=== PATIENT | male | born 1945 | race Caucasian/White ===

== ENCOUNTER 2024-03-28 15:19 | Emergency (ER) | payer MEDICARE, SELFPAY ==
[2024-03-28 15:26] VITALS: BP 156/100; PULSE 104; TEMP 36.9; O2SAT 96; BMI 26.7
--- NOTE | 2024-03-28 16:00 | XR_ITS ---
The [address] [address] Patient Name: SUMI PONCE MRN: [id number] date: 1945 Sex: M Assigned Patient Location: ER Current Patient Location: ER Accession/Order Number: [id number] Exam Date: 03/28/2024 16:10 Report Date: 03/28/2024 16:22 At the request of: LINDA ZAMARRIPA Procedure: XR chest 2V EXAM: Chest x-ray HISTORY: . cough . COMPARISON: None. TECHNIQUE: Frontal and lateral chest FINDINGS: Heart and vascularity are unremarkable. Lungs are free of focal infiltrates. Spondylosis of the spine is noted. XR/XR chest 2V IMPRESSION: No acute heart or lung disease identified. Electronically authenticated by: LAVERN TURNER Date: 03/28/2024 16:22
[2024-03-28 16:56] VITALS: O2SAT 98
--- NOTE | 2024-03-28 17:07 | ED_ITS ---
HPI HPI - General Adult General Chief complaint: Upper Respiratory Infection Stated complaint: URTI Time Seen by Provider: 03/28/24 15:35 Source: patient Mode of arrival: walk-in Limitations: no limitations History of Present Illness HPI narrative: 79-year-old male to the emergency department with chief complaint of nasal congestion, cough. Symptoms been ongoing for the last 3 days. He reports the cough is worse at night. He is having a hard time sleeping due to the cough. He denies any fever, sweats, chills. The cough is nonproductive he is otherwise at his baseline health. No chest pain or shortness of breath. Related Data Previous Rx's ?Medication ?Instructions ?Recorded albuterol sulfate 90 mcg/actuation 2 inh inhalation Q4H PRN shortness 03/28/24 aerosol inhaler of breath or wheezing #6.7 grams vsileyrcgzlrzpw-[id number]-RR 5 ml PO Q4H PRN cold symptoms #118 03/28/24 2 mg-30 mg-10 mg/5 mL oral syrup mL (Bromfed DM) prednisone 20 mg tablet 40 mg (2 x 20 mg) PO DAILY 5 days 03/28/24 #10 tabs Allergies Allergy/AdvReac Type Severity Reaction Status Date / Time No Known Drug Allergies Allergy Verified 03/28/24 15:25 Opioid HPI Opioid Management Most Recent Opioid Data: No Data to Display Review of Systems ROS Status of ROS 10 or more systems reviewed and unremark able except as noted in history and below PFSH PFSH Social History Little interest or pleasure in doing things: not at all Feeling down, depressed, or hopeless: not at all Exam Narrative Exam Narrative: VITALS: I have reviewed the triage vital signs. GENERAL: Well developed, well appearing adult in no acute distress. NEURO: Alert and oriented. Moves all extremities. Face is symmetric and expressive. EYES: PERRL. No scleral icterus or conjunctival injection. No discharge. HENT: Normocephalic, atraumatic. Hearing is grossly intact. Nasal congestion. Mucous membranes moist. NECK: No JVD. Patient moves neck without restriction. CARDIO: Rhythm regular. Normal rate. No murmur, rub, or gallop. Pulses equal bilaterally in the upper and lower extremity. No lower extremity edema. PULM: Rhonchi that clear with coughing. No conversational dyspnea. No splinting, stridor, or accessory muscle use. Dry cough on exam GI/: Abdomen is soft and non-tender. Normoactive bowel sounds. EXTREMITIES: Symmetric muscle bulk. No joint swelling. No clubbing, cyanosis, or deformity. SKIN: Warm and dry. Normal turgor. No rash or lesions appreciated. PSYCH: Mood, affect, and interaction is appropriate to the setting. Constitutional Vital Signs, click to edit/add: Last Vital Signs Temp 98.4 F 03/28/24 15:26 Pulse 104 H 03/28/24 15:26 Resp 18 03/28/24 16:56 BP 156/100 H 03/28/24 15:26 Pulse Ox 98 03/28/24 16:56 O2 Del Method Room Air 03/28/24 16:56 Course Vital Signs Vital signs: Vital Signs Temperature 98.4 F 03/28/24 15:26 Pulse Rate 104 H 03/28/24 15:26 Respiratory Rate 20 03/28/24 15:26 Blood Pressure 156/100 H 03/28/24 15:26 Pulse Oximetry 96 03/28/24 15:26 Temperature 98.4 F 03/28/24 15:26 Pulse Rate 104 H 03/28/24 15:26 Respiratory Rate 18 03/28/24 16:56 Blood Pressure 156/100 H 03/28/24 15:26 Pulse Oximetry 98 03/28/24 16:56 Oxygen Delivery Method Room Air 03/28/24 16:56 Medical Decision Making MDM Narrative Medical decision making narrative: Well-appearing 79-year-old male to the emergency department chief complaint of URI symptoms. Vital stable, the patient is afebrile. He is in no respiratory distress. He has rhonchi that clear with coughing. Nasal congestion. He is concerned about the cough keeping him up at night. Chest x-ray is ordered. Chest x-ray without focal infiltrate. Likely bronchitis. Bromfed, prednisone, albuterol prescribed. Return precautions were discussed. Follow-up with PCP. All questions were answered. The patient was discharged home Medical Records Medical records reviewed: Yes I reviewed the patient's medical records Lab Data Lab results reviewed: Yes I reviewed the patient's lab results Imaging Data Chest x-ray: Radiologist's impression: ITS Impressions Chest X-Ray 03/28/24 16:00 IMPRESSION: No acute heart or lung disease identified. Electronically authenticated by: LAVERN TURNER Date: 03/28/2024 16:22 Discharge Plan Discharge Chief Complaint: Upper Respiratory Infection Clinical Impression: Bronchitis Patient Disposition: Home, Self-Care Time of Disposition Decision: 16:47 Condition: Good Mode of Transportation: Private Vehicle Prescriptions / Home Meds: New prednisone 20 mg tablet 40 mg PO DAILY 5 Days Qty: 10 0RF uuwiwxvvymrzhbx-[id number]-LG [Bromfed DM] 2-30-10 mg/5 mL syrup 5 ml PO Q4H PRN (Reason: cold symptoms) Qty: 118 0RF albuterol sulfate 90 mcg/actuation HFA aerosol inhaler 2 inh inhalation Q4H PRN (Reason: shortness of breath or wheezing) Qty: 6.7 0RF Print Language: Ecuadorean Instructions: Acute Bronchitis (ED) Additional Instructions: Call the office of your primary care doctor to arrange for follow-up within the above-stated timeframe. Your ED visit was focused on your acute issue and does not replace primary care. You should review your labs, imaging, and diagnoses from this ED visit with your primary care physician. There may be non-emergent/ incidental findings that need further evaluation. You should review your vital signs including blood pressure with your PCP. If you were prescribed medications you should discuss possible side-effects and drug interactions with your pharmacist. Call 911 or go to the nearest Emergency Department if you develop any new or worsening symptoms. Seek immediate medical attention if you develop: worsening shortness of breath, difficulty breathing, chest pain, nausea, vomiting, weakness, numbness, tingling, excessive sweating, loss of motion in your arms or legs, or any new or worsening symptoms. Referrals: Physician,Non-Staff, MD [Primary Care Provider] - 1 week Discharge Date/Time: 03/28/24 16:57
== END 2024-03-28 16:57 | disposition home or self-care (01) ==
PROVIDERS: Emergency Provider Student in an Organized Health Care Education/Training Program
DX: J40 Bronchitis, not specified as acute or chronic (principal)
CPT/HCPCS: 71046; 99283

== ENCOUNTER 2024-06-09 20:20 | Emergency (ER) | payer OTHER, SELFPAY ==
[2024-06-09] VITALS (24 sets, daily range): BP systolic 121–175; BP diastolic 58–106; PULSE 82–102; TEMP 36.8–37.1; O2SAT 94–99; BMI 28.1
--- OUTSIDE RECORDS SUMMARY | 2024-06-09 20:31 | XMS_ITS | CCD ---
Author Organization [facility] Care Team Providers Care Net Ui Developer Name Role Phone DR BRYN TAPIA Primary Care Unavailable DR NICK MADRID Consulting Unavailable DIAZ WRAY Attending Unavailable DIAZ WRAY Admitting Unavailable DIAZ WRAY Consulting Unavailable Medications Current Medications Medication Drug Class(es) Dates Sig (Normalized) Sig (Original) hydrOXYzine hydrochloride 25 mg oral tablet (1 source) Antihistamine Start: 12-16-2023 Hydroxyzine Hcl Active 25 MG PO every 6 to 8 hours 14 December 16, 2023 12:00am [place] (No Known Home Meds) (1 source) Start: 12-16-2023 [place] (No Known Home Meds) Active December 16, 2023 12:00am Problems Active Problems Problem Classification Problem Date Documented Da te Episodic/Chronic Other lower respiratory disease (1 source) Other nonspecific abnormal finding of lung field; Translations: [OTH NONSPECIFIC ABN FIND LNG FIELD] Onset: 05-29-2021 Episodic Other lower respiratory disease (1 source) Shortness of breath; Translations: [SHORTNESS OF BREATH] Onset: 05-29-2021 Episodic Pneumonia (except that caused by tuberculosis or sexually transmitted disease) (1 source) Pneumonia, unspecified organism; Translations: [PNEUMONIA UNSPECIFIED ORGANISM] Onset: 05-29-2021 Episodic Unclassified (2 sources) COUGH, UNSPECIFIED; Translations: [COUGH, UNSPECIFIED] Onset: 05-29-2021 Unclassified (1 source) CONTACT W/AND (SUSP) EXPOS COVID-19; Translations: [CONTACT W/AND (SUSP) EXPOS COVID-19] Onset: 05-29-2021 Past or Other Problems Problem Classification Problem Date Documented Da te Episodic/Chronic Unclassified (1 source) COUGH, UNSPECIFIED; Translations: [COUGH, UNSPECIFIED] Onset: 05-27-2021 Results Test Name Value Interpretation Reference Range Facil ity BNPon 05-27-2021 Natriuretic peptide B (Bld) [Mass/Vol] 39.0 pg/mL Normal <=1,800.[address] [facility] Comment on above: Performed By: #### C MP, HSTROPN, BNP #### [facility] [address] [place] [address] Dr. Chio Rojas CBC W MANUAL DIFFon 05-27-20 21 ATYPICAL LYMPH # Normal [facility] Comment on above: Performed By: #### C BCMAN #### [facility] [address] [place] [address] Dr. Chio Rojas ATYPICAL LYMPH % Normal [facility] Comment on above: Performed By: #### C BCMAN #### [facility] [address] [place] [address] Dr. Chio Rojas BAND # 0.1 103/ul Normal 0.0-0.3 [facility] Comment on above: Performed By: #### C DEMIMAN #### [facility] [address] [place] [address] Dr. Chio Rojas BAND % 1 % Normal 0-[address] [facility] Comment on above: Performed By: #### C BCYAHAIRA #### [facility] [address] [place] [address] Dr. Chio Rojas BASOM # 0.09 103/ul Normal 0.00-0.10 [facility] Comment on above: Performed By: #### C GISSELLE #### [facility] [address] [place] [address] Dr. Chio Rojas BASOM % 1.0 % Normal 0.2-2.0 [facility] Comment on above: Performed By: #### C BCMAN #### [facility] [address] [place] [address] Dr. Chio Rojas BLAST # Normal [facility] Comment on above: Performed By: #### C BCMAN #### [facility] [address] [place] [address] Dr. Chio Rojas BLAST % Normal [facility] Comment on above: Performed By: #### C BCMAN #### [facility] [address] [address] [address] Chio Rojas CORRECTED WBC Normal 4.0-11.0 [facility] Comment on above: Performed By: #### C GISSELLE #### [facility] [address] [place] [address] Dr. Chio Rojas EOS # 0.68 103/ul Normal 0.00-0.70 [facility] Comment on above: Performed By: #### C GISSELLE #### [facility] [address] [address] [address] Chio Rojas EOS% 8.0 % Critically high 0.9-7.0 [facility] Comment on above: Performed By: #### C GISSELLE #### [facility] [address] [place] [address] Dr. Chio Rojas HCT 48.5 % Normal 42.0-54.0 [facility] Comment on above: Performed By: #### C GISSELLE #### [facility] [address] [place] [address] Dr. Chio Rojas HGB 16.2 g/dl Normal 14.0-18.0 [facility] Comment on above: Performed By: #### C GISSELLE #### [facility] [address] [place] [address] Dr. Chio Rojas LYMPHM # 2.04 103/ul Normal 1.20-3.[address] [facility] Comment on above: Performed By: #### C GISSELLE #### [facility] [address] [place] [address] Dr. Chio Rojas LYMPHM% 24.0 % Normal 20.5-60.[address] [facility] Comment on above: Performed By: #### C GISSELLE #### [facility] [address] [place] [address] Dr. Chio Rojas MCH 29.9 pg Normal 25.9-34.0 [facility] Comment on above: Performed By: #### C GISSELLE #### [facility] [address] [place] [address] Dr. Chio Rojas MCHC 33.4 g/dl Normal 29.9-35.2 [facility] Comment on above: Performed By: #### C BCYAHAIRA #### [facility] [address] [place] [address] Dr. Chio Rojas MCV 89.6 fL Normal 80.0-94.0 [facility] Comment on above: Performed By: #### C GISSELLE #### [facility] [address] [place] [address] Dr. Chio Rojas METAMYELOCYTE # Normal [facility] Comment on above: Performed By: #### C BCYAHAIRA #### [facility] [address] [place] [address] Dr. Chio Rojas METAMYELOCYTE % Normal [facility] Comment on above: Performed By: #### C GISSELLE #### [facility] [address] [place] [address] Dr. Chio Rojas MONOM# 0.94 103/ul Critically high 0.30-0.80 [facility] Comment on above: Performed By: #### C GISSELLE #### [facility] [address] [place] [address] Dr. Chio Rojas MONOM% 11.0 % Normal 1.7-12.0 [facility] Comment on above: Performed By: #### C GISSELLE #### [facility] [address] [place] [address] Dr. Chio Rojas MPV 11.3 fL Normal 9.5-13.5 [facility] Comment on above: Performed By: #### C GISSELLE #### [facility] [address] [place] [address] Dr. Chio Rojas MYELOCYTE # Normal [facility] Comment on above: Performed By: #### C GISSELLE #### [facility] [address] [place] [address] Dr. Chio Rojas MYELOCYTE % Normal [facility] Comment on above: Performed By: #### C GISSELLE #### [facility] [address] [place] [address] Dr. Chio Rojas NRBC Normal [facility] Comment on above: Performed By: #### C GISSELLE #### [facility] [address] [address] [address] Chio Rojas PLT 142 103/ul Critically low 150-450 [facility] Comment on above: Performed By: #### C GISSELLE #### [facility] [address] [address] [address] Chio Rojas RBC 5.41 106/ul Normal 4.70-6.[address] [facility] Comment on above: Performed By: #### C GISSELLE #### [facility] [address] [address] [address] Chio Rojas RDW 14.0 % Normal 11.0-15.0 [facility] Comment on above: Performed By: #### C GISSELLE #### [facility] [address] [place] [address] Dr. Chio Rojas SEG # 4.67 103/ul Normal 1.40-6.50 [facility] Comment on above: Performed By: #### C GISSELLE #### [facility] [address] [place] [address] Dr. Chio Rojas SEG % 55.0 % Normal 43.0-75.0 [facility] Comment on above: Performed By: #### C GISSELLE #### [facility] [address] [place] [address] Dr. Chio Rojas WBC 8.5 103/ul Normal 4.0-11.0 [facility] Comment on above: Performed By: #### Linda PITTS #### [facility] [address] [place] [address] Dr. Chio Rojas CTA CHEST WO W CONon 05-27- 021 CTA CHEST WO W CON EXAMINATION: CTA CHEST WO W CON HISTORY: SHORTNESS OF BREATH , cough COMPARISON: No relevant comparison available. TECHNIQUE: Multi-planar CT images were created with IV contrast. Axial, Coronal, and Sagittal images. Dose reduction techniques were achieved by using automated exposure control and/or adjustment of mA and/or kV according to patient size and/or use of iterative reconstruction technique. 3-D reconstruction was performed on a separate workstation. FINDINGS: VASCULATURE: No pulmonary embolism or abnormal opacity. LUNGS: Small collection of tiny faint nodular/patchy opacities within posterior lateral right upper lobe at the level of the hilum and within the superior segment of the right lower lobe at the same level. PLEURA: No mass, effusion, or pneumothorax. DULCE: Mild lymphadenopathy. MEDIASTINUM: Calcified subcarinal lymph nodes. CARDIAC: No enlargement, pericardial effusion, or pericardial thickening. AORTA: No aneurysm or dissection. CHEST WALL: No mass or axillary adenopathy. BONES: No bone lesion or fracture. LIMITED ABDOMEN: No suspicious findings. Limited images of the upper abdomen. OTHER: Negative. IMPRESSION: 1. No pulmonary embolism. 2. Small area of mild infectious infiltrates versus developing nodules. Follow-up imaging in 2 months should be considered to document clearing versus persistence or increase. Electronically authenticated by: NICK MADRID Date: 2021-05-27 12:[address] [facility] Covid-19 PCR (CVDTBH)on 05-15 SARS-CoV-2 (COVID-19) RNA CHAYO+probe Ql (Unsp spec) Not detected Normal NOT DETECTED [facility] Comment on above: Result Comment: When diagnostic testing is negative, the possibility of a false negative should be considered in the context of a patient's recent exposures and the presence of clinical signs and symptoms consistent with SARS-CoV-2. This test is not yet approved or cleared by the [place] Food and Drug Administration (FDA). This test was developed by [employer], [place], [place]. The performance characteristics of this test were validated by [facility]. The results are not intended to be used as the sole means for clinical diagnosis or patient management decisions. [facility] is authorized under Clinical Laboratory Improvement Amendments (CLIA) to perform high- complexity testing. This test is not yet approved or cleared by the [place] FDA. When there are no FDA-approved or cleared tests available, and other criteria are met, FDA can make tests available under an emergency access mechanism called an Emergency Use Authorization (EUA). The EUA for this test is supported by the [place] of Health and Human Service's declaration that circumstances exist to justify the emergency use of in vitro diagnostics for the detection and/or diagnosis of the virus that causes COVID-19. This EUA will remain in effect for the duration of the COVID-19 declaration justifying emergency of IVDs, unless it is terminated or revoked by the FDA (after which the test may no longer be used). Performed By: #### C VDTBH #### [facility] [address] [place] [address] Dr. Chio Rojas D-DIMERon 05-27-2021 D-DIMER 0.65 mg/L FEU Critically high 0.19-0.[address] [facility] Comment on above: Performed By: #### P TT, PT, DDIM #### [facility] [address] [place] [address] Dr. Chio Rojas D-DIMER COMMENTS SEE BELOW Normal [facility] Comment on above: Result Comment: Incr eases in D-Dimer concentration observed with thromboembolic events can be variable due to localization, size, and age of the thrombus. Therefore, a thromboembolic event cannot be diagnosed with certainty on the basis of the reference range. D-Dimers may also be elevated for a variety of disorders including: advanced age, , coronary disease, cancer, liver disease, infection, inflammation, hematoma, DIC, trauma, post-surgery, diabetes, thrombolytic or anticoagulant therapy, stress, and generalized hospitalization. critical value repeated and verified Performed By: #### P TT, PT, DDIM #### [facility] [address] [place] [address] Dr. Chio Rojas PROF 14(COMP METB)on 021 Albumin [Mass/Vol] 3.8 g/dL Normal 3.5-5.[address] [facility] Comment on above: Performed By: #### C MP, HSTROPN, BNP #### [facility] [address] [place] [address] Dr. Chio Rojas Albumin/Globulin [Mass ratio] 1.0 {ratio} Normal [facility] Comment on above: Performed By: #### C MP, HSTROPN, BNP #### [facility] [address] [place] [address] Dr. Chio Rojas ALP [Catalytic activity/Vol] 87 U/L Normal 38-[address] [facility] Comment on above: Performed By: #### C MP, HSTROPN, BNP #### [facility] [address] [address] [address] Chio Rojas ALT [Catalytic activity/Vol] 74 U/L Critically high 21-72 [facility] Comment on above: Performed By: #### C MP, HSTROPN, BNP #### [facility] [address] [address] [address] Chio Rojas Anion gap [Moles/Vol] 27.1 mmol/L Normal [facility] Comment on above: Performed By: #### C MP, HSTROPN, BNP #### [facility] [address] [address] [address] Chio Rojas AST [Catalytic activity/Vol] 41 U/L Normal 17-[address] [facility] Comment on above: Performed By: #### C MP, HSTROPN, BNP #### [facility] [address] [place] [address] Dr. Chio Rojas Bilirubin [Mass/Vol] 1.3 mg/dL Normal 0.2-1.3 [facility] Comment on above: Performed By: #### C MP, HSTROPN, BNP #### [facility] [address] [address] [address] Chio Rojas Calcium [Mass/Vol] 9.2 mg/dL Normal 8.4-10.2 [facility] Comment on above: Performed By: #### C MP, HSTROPN, BNP #### [facility] [address] [address] [address] Chio Rojas Chloride [Moles/Vol] 102 mmol/L Normal 98-[address] [facility] Comment on above: Performed By: #### C MP, HSTROPN, BNP #### [facility] [address] [address] [address] Chio Rojas CO2 [Moles/Vol] 25.5 mmol/L Normal 22.0-30.0 [facility] Comment on above: Performed By: #### C MP, HSTROPN, BNP #### [facility] [address] [address] [address] Chio Rojas Creatinine [Mass/Vol] 1.24 mg/dL Normal 0.66-1.25 [facility] Comment on above: Performed By: #### C MP, HSTROPN, BNP #### [facility] [address] [place] [address] Dr. Chio Rojas EGFR-AF CONGOLESE >60 Normal >=60 [facility] Comment on above: Performed By: #### C MP, HSTROPN, BNP #### [facility] [address] [place] [address] Dr. Chio Rojas EGFR-NON AF CONGOLESE 57 mL/min/1.73m2 Critically low >=60 [facility] Comment on above: Performed By: #### C MP, HSTROPN, BNP #### [facility] [address] [place] [address] Dr. Chio Rojas Globulin (S) [Mass/Vol] 3.8 g/dL Normal [facility] Comment on above: Performed By: #### C MP, HSTROPN, BNP #### [facility] [address] [place] [address] Dr. Chio Rojas Glucose [Mass/Vol] 105 mg/dL Normal 74-106 [facility] Comment on above: Performed By: #### C MP, HSTROPN, BNP #### [facility] [address] [place] [address] Dr. Chio Rojas Potassium [Moles/Vol] 4.2 mmol/L Normal 3.4-5.0 [facility] Comment on above: Performed By: #### C MP, HSTROPN, BNP #### [facility] [address] [place] [address] Dr. Chio Rojas Protein [Mass/Vol] 7.6 g/dL Normal 6.1-8.2 [facility] Comment on above: Performed By: #### C MP, HSTROPN, BNP #### [facility] [address] [place] [address] Dr. Chio Rojas Sodium [Moles/Vol] 141 mmol/L Normal 137-145 [facility] Comment on above: Performed By: #### C MP, HSTROPN, BNP #### [facility] [address] [place] [address] Dr. Chio Rojas Urea nitrogen [Mass/Vol] 29.0 mg/dL Critically high 9.0-20.0 [facility] Comment on above: Performed By: #### C MP, HSTROPN, BNP #### [facility] [address] [place] [address] Dr. Chio Rojas Urea nitrogen/Creatinine [Mass ratio] 23.4 mg/mg Normal [facility] Comment on above: Performed By: #### C MP, HSTROPN, BNP #### [facility] [address] [place] [address] Dr. Chio Rojas PROTIMEon 05-27-2021 INR Coag (PPP) [Relative time] 1.01 {INR} Normal [facility] Comment on above: Performed By: #### P TT, PT, DDIM #### [facility] [address] [place] [address] Dr. Chio Rojas INR GUIDELINES SEE BELOW Normal [facility] Comment on above: Result Comment: BIN RED INR: 2.0 - 3.0 CONDITIONS NOT LISTED BELOW 2.5 - 3.5 FOR PROSTHETIC HEART VALVE REPLACEMENT 2.5 - 3.5 RECURRENT THROMBOSIS Performed By: #### P TT, PT, DDIM #### [facility] [address] [place] [address] Dr. Chio Rojas PT Coag (PPP) [Time] 10.9 s Normal 9.0-11.[address] [facility] Comment on above: Performed By: #### P TT, PT, DDIM #### [facility] [address] [place] [address] Dr. Chio Rojas PTTon 05-27-2021 aPTT Coag (Bld) [Time] 28.2 s Normal 22.3-36.2 [facility] Comment on above: Performed By: #### P TT, PT, DDIM #### [facility] [address] [place] [address] Dr. Chio Rojas TROPONIN, HIGH SENSITIVITYon 05-27-2021 HSTROP 11.9 pg/mL Normal 4.0-42.[address] [facility] Comment on above: Result Comment: CUT- OFF POINTS HAVE BEEN ESTABLISHED BASED ON THE FOURTH UNIVERSAL DEFINITIONS OF MYOCARDIAL INFARCTION. THE UPPER REFERENCE LIMIT (URL) OF TROPONIN, DEFINED THE 99TH PERCENTILE OF cTnI DISTRIBUTION IN A REFERENCE POPULATION, HAS BEEN CONFIRMED THE DECISION THRESHOLD FOR [place] DIAGNOSIS. Performed By: #### C MP, HSTROPN, BNP #### [facility] [address] [address] [address] Chio Rojas Vital Signs Date Time Vital Sign Value Performing Clinician Faci lity 12-16-2023 11:040 Body height 175.26 cm [facility] 12-16-2023 11:0400 Body mass index (BMI) [Ratio] 27.3 kg/m2 [facility] 12-16-2023 11:07-0400 Body temperature 98.2 [degF] [facility] 12-16-2023 11:[id number] Body weight 84.08 kg [facility] 12-16-2023 11:07-0400 Diastolic blood pressure 70 mm[Hg] [facility] 12-16-2023 11:07-0400 Heart rate 82 /min [facility] 12-16-2023 11:07-0400 Respiratory rate 18 /min [facility] 12-16-2023 11:07-0400 SaO2% (BldA) [Mass fraction] 98 % [facility] 12-16-2023 11:07-0400 Systolic blood pressure 120 mm[Hg] [facility] Encounters Encounter Date Encounter Type Care Provider Facility Start: 12-16-2023 End: 12-16-2023 ambulatory [facility] Work Phone: Start: 12-16-2023 End: 12-16-2023 Patient encounter procedure [facility] Work Phone: Start: 05-27-2021 End: 05-27-[address] DOCTOR TAPIA Facility: Payers Date Payer Category Payer Unknown [id number] 1945 Unknown [id number] Medicare Medicare [id number] Social History Date Type Detail Facility [facility] Work Phone: Start: 1945 Sex Assigned At Male F [facility] Evaluation note Note Date & Type Note Facility Evaluation note No assessment information availa ble [facility] Work Phone: Summary Purpose Family History Relationship Condition Age at Onset Recorded Date/T barry father Unknown mother Malignant neoplasm Unknown Unknown Advance Directives Advance Directive Response Recorded Date/ Time Advance Directives No December 15 10:55am Chief Complaint and Reason for Visit Chief Complaint Rash arms, face, wor sandrita in yard Additional Source Comments (unrecognized sect ion and content) No Status Records Found INFORMATION SOURCE (unrecogn ized section and content) DATE CREATED AUTHOR 05/29/2021 [facility] (unrecognized sec tion and content) Team Status: Active Member Role Status Dates NON STAFF Primary Care Provider Active Team Status: Inactive Member Role Status Dates NON STAFF Primary Care Provider Active Start: December 16, 2023 End: December 16, 2023 Stacie Pete APRN Attending Provider Active S tart: December 16, 2023 End: December 16, 2023 Goals (unrecognized section and content) Goals may be documented in a n alternate section FOR RECORDS PERTAINING TO PATIENTS WHO ARE OR HAVE BEEN ENROLLED IN A CHEMICAL DEPENDENCY/SUBSTANCEABUSE PROGRAM, SOME INFORMATION MAY BE OMITTED. This clinical summary was aggregated from multiple sources. Caution should be exercised in using it in the provision of clinical care. This summary normalizes information from multiple sources, and as a consequence, information in this document may materially change the coding, format and clinical context of patient data. In addition, data may be omitted in some cases. CLINICAL DECISIONS SHOULD BE BASED ON THE PRIMARY CLINICAL RECORDS. [facility] [employer] [facility]. provides no warranty or guarantee of the accuracy or completeness of information in this document.
--- NOTE | 2024-06-09 20:36 | PC.NURSE ---
this patient drove himself into the er dept with complaints of diarrhea and nausea, onset 5 days ago. this patient voices no other complaints and he shows no signs of distress
--- NOTE | 2024-06-09 20:38 | CT_ITS ---
The [address] [address] Patient Name: SUMI MCKENZIE MRN: [id number] date: 1945 Sex: M Assigned Patient Location: ED.MAIN Current Patient Location: Accession/Order Number: [id number] Exam Date: 06/09/2024 21:40 Report Date: 06/09/2024 22:55 At the request of: OSMIN MARTIN Procedure: CT abdomen pelvis w con CT OF THE ABDOMEN AND PELVIS WITH CONTRAST: 06/09/2024 9:40 PM EST CLINICAL HISTORY: Diarrhea. Symptoms x5 days. Nausea and vomiting. COMPARISONS: None. TECHNIQUE: Thin section axial CT images were obtained from the lung bases to the pubis symphysis. This CT exam was performed using one or more of the following dose reduction techniques: Automated exposure control, adjustment of the mA and/or kV according to patient size, or use of iterative reconstruction technique. Thin section coronal and sagittal images were reconstructed from the axial data set. All images were reviewed and interpreted. CONTRAST: Omnipaque 300, 100 mL IV. FINDINGS: LUNG BASES: Subcentimeter calcified granuloma medial base of right middle lobe. Lung bases otherwise clear. No cardiac chamber enlargement. GE JUNCTION AND STOMACH: Negative. No hiatal hernia. LIVER: Mild diffuse hepatic steatosis. Tiny low-density cystic lesion left hepatic lobe are too small to characterize but statistically benign cyst measuring 7 mm. Density lower than that of fatty liver.. GALLBLADDER: There are 2 small distal layering calcified gallstones at distal fundus. These measure 7 to 8 mm each. No evidence of cholecystitis. BILIARY TREE: No ductal dilatation. PANCREAS: Normal. SPLEEN: Couple small scattered calcified splenic granulomas. Borderline size enlargement measuring 13 cm in length. No splenic mass or cyst. ADRENALS: Normal. KIDNEYS AND URETERS: Right kidney and ureter are normal. No mass or cyst or hydronephrosis. No retained right intrarenal or ureteral calculus. Simple posterior mid upper pole cyst left kidney measuring 1.6 cm. Left kidney otherwise normal. No intrarenal or ureteral calculi. No left renal mass. URINARY BLADDER: Grossly unremarkable. PELVIC STRUCTURES: Unremarkable. BOWEL: No evidence of obstruction, gross mass, or inflammatory change. There is no significant diverticulosis. There is no evidence of diverticulitis. APPENDIX: No active disease with normal appendix. LYMPH NODES: No pathologically enlarged lymph nodes identified. PERITONEUM: No intraperitoneal free air. No free intraperitoneal fluid. MESENTERY: Unremarkable. RETROPERITONEUM: The retroperitoneum is unremarkable. AORTA: Normal caliber aorta neck arteries. Scattered atherosclerotic calcific plaque throughout the wall of the aorta. BODY WALL: No body wall mass. OSSEOUS STRUCTURES: No destructive osseous lesion or displaced fracture. CT/CT abdomen pelvis w con IMPRESSION: 1. No acute abdominal or pelvic pathology. 2. Borderline splenic enlargement with scattered calcified splenic granulomas. Correlate with labs. 3. Hepatic steatosis with tiny left hepatic lobe cyst. 4. Cholelithiasis. Electronically authenticated by: REGINA DELGADO Date: 06/09/2024 22:55
--- NOTE | 2024-06-09 20:39 | ED.GENADUL1 ---
Documented by User: TAYLOR Dooley 06/09/24 21:50 HPI HPI - General Adult General Chief complaint: Nausea/Vomiting/Diarrhea Stated complaint: DIARRHEA, NAUSEA Time Seen by Provider: 06/09/24 20:31 Source: patient Mode of arrival: walk-in Limitations: no limitations History of Present Illness HPI narrative: Patient is a 79-year-old male who who presents to the emergency department for a 5-day history of diarrhea and intermittent nausea. He has no abdominal pain or nausea at this time but reports continuous loose stool. He had a colonoscopy about 10 years ago that was unremarkable. He has not had any previous history of diverticulitis or colitis. He denies any recent antibiotics or travel. No sick contacts in the home. He denies previous abdominal surgeries. He has not had any fevers, vomiting or urinary symptoms. No flank or back pain. He denies any blood in his stool or mucus. Related Data Previous Rx's ?Medication ?Instructions ?Recorded albuterol sulfate 90 mcg/actuation 2 inh inhalation Q4H PRN shortness 03/28/24 aerosol inhaler of breath or wheezing #6.7 grams zammyelorsfvyue-flnkjazmsnsybgx-QJ 5 ml PO Q4H PRN cold symptoms #118 03/28/24 2 mg-30 mg-10 mg/5 mL oral syrup mL (Bromfed DM) prednisone 20 mg tablet 40 mg (2 x 20 mg) PO DAILY 5 days 03/28/24 #10 tabs dicyclomine 20 mg tablet 20 mg PO TID PRN abdominal pain #7 06/10/24 tabs ondansetron 4 mg disintegrating 4 mg PO Q4H PRN nausea and 06/10/24 tablet vomiting 3 days #6 tabs Allergies Allergy/AdvReac Type Severity Reaction Status Date / Time No Known Drug Allergies Allergy Verified 06/09/24 20:27 Opioid HPI Opioid Management Most Recent Opioid Data: No Data to Display Review of Systems ROS Constitutional Denies: fever or chills Ears, nose, mouth, and throat Denies: throat pain or nasal congestion Cardiovascular Denies: chest pain Respiratory Denies: shortness of breath Gastrointestinal Reports: nausea and diarrhea; Denies: abdominal pain, vomiting or blood in stool Musculoskeletal Denies: back pain or neck pain Integumentary/Breast Denies: rash Neurological Denies: numbness in extremities or weakness in extremities Hematologic/Lymphatic Denies: easy bruising or easy bleeding PFSH [facility] Medical History (Updated 06/09/24 @ 21:50 by TAYLOR Dooley) GERD (gastroesophageal reflux disease) ?K21.9 - Gastro-esophageal reflux disease without esophagitis (ICD-10) Hypertension ?I10 - Essential (primary) hypertension (ICD-10) Social History Little interest or pleasure in doing things: not at all Feeling down, depressed, or hopeless: not at all Exam Narrative Exam Narrative: Gen.: Awake, alert, in no distress Head: Normocephalic, atraumatic ENT: Moist mucous membranes Respiratory: No respiratory distress, lungs clear bilaterally Cardio: Regular rate and rhythm Gastrointestinal: Abdomen is soft, nondistended and nontender to palpation Extremities: Moves extremities equally Psych: Normal mood and affect Neuro: No focal neuro deficit Skin: Warm, dry, intact Constitutional Vital Signs, click to edit/add: Last Vital Signs Temp 98.7 F 06/09/24 21:59 Pulse 82 06/09/24 23:02 Resp 18 06/09/24 23:02 BP 121/58 06/09/24 23:30 Pulse Ox 98 06/09/24 23:50 O2 Del Method Room Air 06/09/24 20:28 Course Vital Signs Vital signs: Vital Signs Temperature 98.3 F 06/09/24 20:28 Pulse Rate 102 H 06/09/24 20:28 Respiratory Rate 19 06/09/24 20:28 Blood Pressure 153/100 H 06/09/24 20:28 Pulse Oximetry 98 06/09/24 20:28 Oxygen Delivery Method Room Air 06/09/24 20:28 Temperature 98.7 F 06/09/24 21:59 Pulse Rate 82 06/09/24 23:02 Respiratory Rate 18 06/09/24 23:02 Blood Pressure 121/58 06/09/24 23:30 Pulse Oximetry 98 06/09/24 23:50 Oxygen Delivery Method Room Air 06/09/24 20:28 Medical Decision Making [facility] Narrative Medical decision making narrative: 2148: Patient has no complaint of abdominal pain or nausea at this time. Laboratory studies are obtained, he has not had a bowel movement at this time. He was sent for CT of the abdomen and pelvis which is pending. Case is turned over to attending physician for disposition. Patient is hemodynamically stable at this time SHARED APC VISIT, PHYSICIAN ATTESTATION: [id number] I performed a substantive part of the MDM during the patient?s E/M visit. I personally evaluated and examined the patient. I personally made or approved the documented management plan and acknowledge its risk of complications. Medical Records Medical records reviewed: Yes I reviewed the patient's medical records Lab Data Lab results reviewed: Yes I reviewed the patient's lab results Labs: Lab Results 06/09/24 06/09/24 Range/Units 20:50 23:00 WBC 8.8 (4.0-11.0) 10^3/uL RBC 5.11 (4.70-6.10) 10^6/uL Hgb 15.6 (14.0-18.0) g/dL Hct 45.8 (42.0-54.0) % MCV 89.6 (80.0-94.0) fL MCH 30.5 (25.9-34.0) pg MCHC 34.1 (29.9-35.2) g/dL RDW 13.5 (11.0-15.0) % Plt Count 165 (150-450) 10^3/uL MPV 10.9 (9.5-13.5) fL Neut % (Auto) 70.8 (43.0-75.0) % Lymph % (Auto) 15.6 L (20.5-60.0) % [place] % (Auto) 9.2 (1.7-12.0) % Eos % (Auto) 3.6 (0.9-7.0) % Baso % (Auto) 0.5 (0.2-2.0) % Neut # (Auto) 6.2 (1.4-6.5) 10^3/uL Lymph # (Auto) 1.4 (1.2-3.8) 10^3/uL [place] # (Auto) 0.8 (0.3-0.8) 10^3/uL Eos # (Auto) 0.3 (0.0-0.7) 10^3/uL Baso # (Auto) 0.0 (0.0-0.1) 10^3/uL Abs Immat Gran (auto) 0.03 (0.00-0.03) 10^3/uL Imm/Tot Granulo (auto) 0.3 (0.0-0.5) % Sodium 142 (136-145) mmol/L Potassium 3.8 (3.5-5.1) mmol/L Chloride 106 (98-107) mmol/L Carbon Dioxide 26.8 (21.0-32.0) mmol/L Anion Gap 13.0 BUN 28.0 H (7.0-18.0) mg/dL Creatinine 1.40 H (0.70-1.30) mg/dL Est GFR ( Amer) 59 L (>=60 mL/min/1.73m^2) Est GFR (Non-Af Amer) 49 L (>=60 mL/min/1.73m^2) BUN/Creatinine Ratio 20.0 Glucose 106 (74-106) mg/dL Lactate 1.3 (0.4-2.0) mmol/L Calcium 8.4 L (8.5-10.1) mg/dL Total Bilirubin 1.2 H (0.2-1.0) mg/dL AST 40 H (15-37) U/L ALT 73 H (16-63) U/L Alkaline Phosphatase 80 (46-116) U/L Total Protein 7.6 (6.4-8.2) g/dL Albumin 4.3 (3.4-5.0) g/dL Globulin 3.3 g/dL Albumin/Globulin Ratio 1.3 Lipase 48.0 (16.0-77.0) U/L Urine Color Yellow (YELLOW) Urine Clarity Clear (CLEAR) Urine pH 6.0 (5.0-9.0) Ur Specific [place] 1.010 (1.005-1.025) Urine Protein Negative (NEG/TRACE) mg/dL Urine Glucose (UA) Negative (NEGATIVE) mg/dL Urine Ketones Negative (NEGATIVE) mg/dL Urine Occult Blood Negative (NEGATIVE) Urine Nitrite Negative (NEGATIVE) Urine Bilirubin Negative (NEGATIVE) Urine Urobilinogen 0.2 (0.2-1.0) EU/dL Ur Leukocyte Esterase Negative (NEGATIVE) Imaging Data CT scan - abdomen: Attestation: I have reviewed the pertinent imaging results. Radiologist's impression: ITS Impressions Abdomen/Pelvis CT 06/09/24 20:38 IMPRESSION: 1. No acute abdominal or pelvic pathology. 2. Borderline splenic enlargement with scattered calcified splenic granulomas. Correlate with labs. 3. Hepatic steatosis with tiny left hepatic lobe cyst. 4. Cholelithiasis. Electronically authenticated by: REGINA DELGADO Date: 06/09/2024 22:55 Discharge Plan Discharge Chief Complaint: Nausea/Vomiting/Diarrhea Clinical Impression: Diarrhea Patient Disposition: Home, Self-Care Time of Disposition Decision: 00:02 Condition: Fair Prescriptions / Home Meds: New dicyclomine 20 mg tablet 20 mg PO TID PRN (Reason: abdominal pain) Qty: 7 0RF ondansetron 4 mg tablet,disintegrating 4 mg PO Q4H PRN (Reason: nausea and vomiting) 3 Days Qty: 6 0RF No Action prednisone 20 mg tablet 40 mg PO DAILY 5 Days Qty: 10 0RF kseuvxilvopyyjz-bynwlbkld-EK [Bromfed DM] 2-30-10 mg/5 mL syrup 5 ml PO Q4H PRN (Reason: cold symptoms) Qty: 118 0RF albuterol sulfate 90 mcg/actuation HFA aerosol inhaler 2 inh inhalation Q4H PRN (Reason: shortness of breath or wheezing) Qty: 6.7 0RF Print Language: Turkmen Instructions: Acute Diarrhea (ED), Acute Abdominal Pain (ED) Additional Instructions: We have discussed your lab work at bedside, including your kidney blood test BUN/CR your BUN was 28 (high normal 18). Your creatinine was 1.4 (high normal 1.4) [facility] your last blood test on your kidneys were done and compared the results today to those. Continue to increase fluids at home, Gatorade, Powerade, water. Use Zofran or Bentyl as needed for nausea or abdominal cramping. If diarrhea is continuing after 10 to 14 days, [facility] for additional [facility] cultures and testing if indicated. Referrals: Physician,Non-Staff, MD [Primary Care Provider] - 1 week Documented by User: Justin Camejo MD 06/10/24 00:14 HPI HPI - General Adult General Chief complaint: Nausea/Vomiting/Diarrhea Stated complaint: DIARRHEA, NAUSEA Time Seen by Provider: 06/09/24 20:31 Related Data Previous Rx's ?Medication ?Instructions ?Recorded albuterol sulfate 90 mcg/actuation 2 inh inhalation Q4H PRN shortness 03/28/24 aerosol inhaler of breath or wheezing #6.7 grams yygmhlgefkzbith-skgwadlfjcyfnjp-IZ 5 ml PO Q4H PRN cold symptoms #118 03/28/24 2 mg-30 mg-10 mg/5 mL oral syrup mL (Bromfed DM) prednisone 20 mg tablet 40 mg (2 x 20 mg) PO DAILY 5 days 03/28/24 #10 tabs dicyclomine 20 mg tablet 20 mg PO TID PRN abdominal pain #7 06/10/24 tabs ondansetron 4 mg disintegrating 4 mg PO Q4H PRN nausea and 06/10/24 tablet vomiting 3 days #6 tabs Allergies Allergy/AdvReac Type Severity Reaction Status Date / Time No Known Drug Allergies Allergy Verified 06/09/24 20:27 Opioid HPI Opioid Management Most Recent Opioid Data: No Data to Display [facility] Medical History (Updated 06/09/24 @ 21:50 by TAYLOR Dooley) GERD (gastroesophageal reflux disease) ?K21.9 - Gastro-esophageal reflux disease without esophagitis (ICD-10) Hypertension ?I10 - Essential (primary) hypertension (ICD-10) Social History Little interest or pleasure in doing things: not at all Feeling down, depressed, or hopeless: not at all Exam Constitutional Vital Signs, click to edit/add: Last Vital Signs Temp 98.7 F 06/09/24 21:59 Pulse 82 06/09/24 23:02 Resp 18 06/09/24 23:02 BP 121/58 06/09/24 23:30 Pulse Ox 98 06/09/24 23:50 O2 Del Method Room Air 06/09/24 20:28 Course Vital Signs Vital signs: Vital Signs Temperature 98.3 F 06/09/24 20:28 Pulse Rate 102 H 06/09/24 20:28 Respiratory Rate 19 06/09/24 20:28 Blood Pressure 153/100 H 06/09/24 20:28 Pulse Oximetry 98 06/09/24 20:28 Oxygen Delivery Method Room Air 06/09/24 20:28 Temperature 98.7 F 06/09/24 21:59 Pulse Rate 82 06/09/24 23:02 Respiratory Rate 18 06/09/24 23:02 Blood Pressure 121/58 06/09/24 23:30 Pulse Oximetry 98 06/09/24 23:50 Oxygen Delivery Method Room Air 06/09/24 20:28 Medical Decision Making MDM Narrative Medical decision making narrative: 2148: Patient has no complaint of abdominal pain or nausea at this time. Laboratory studies are obtained, he has not had a bowel movement at this time. He was sent for CT of the abdomen and pelvis which is pending. Case is turned over to attending physician for disposition. Patient is hemodynamically stable at this time SHARED APC VISIT, PHYSICIAN ATTESTATION: [id number] I performed a substantive part of the MDM during the patient?s E/M visit. I personally evaluated and examined the patient. I personally made or approved the documented management plan and acknowledge its risk of complications. Dr. Camejo note below. 0005 reevaluation of patient's abdomen at discharge shows soft, no guarding, rebound, rigidity. Mild diffuse discomfort, no significant tenderness. No flank pain bilateral. Reevaluation of patient bowel exam was done by Dr. Camejo. Patient is sent home with prescription for Zofran and Bentyl to use if needed. [facility] We did discuss for 5 minutes patient's BUN and creatinine results today, patient is uncertain when the last time he had any type of lab testing and he does not recall ever having anybody tell him that his kidney function tests have been elevated. Patient shows no signs of dehydration with his urine. Patient will continue pplk-bvf-mzngckm treatments and was sent home with prescription for Zofran and Bentyl. Patient CT report was given to him as well. No acute indication for admission. Patient does feel better after medication was given along with IV fluids. No questions at discharge. Lab Data Labs: Lab Results 06/09/24 06/09/24 Range/Units 20:50 23:00 WBC 8.8 (4.0-11.0) 10^3/uL RBC 5.11 (4.70-6.10) 10^6/uL Hgb 15.6 (14.0-18.0) g/dL Hct 45.8 (42.0-54.0) % MCV 89.6 (80.0-94.0) fL MCH 30.5 (25.9-34.0) pg MCHC 34.1 (29.9-35.2) g/dL RDW 13.5 (11.0-15.0) % Plt Count 165 (150-450) 10^3/uL MPV 10.9 (9.5-13.5) fL Neut % (Auto) 70.8 (43.0-75.0) % Lymph % (Auto) 15.6 L (20.5-60.0) % [place] % (Auto) 9.2 (1.7-12.0) % Eos % (Auto) 3.6 (0.9-7.0) % Baso % (Auto) 0.5 (0.2-2.0) % Neut # (Auto) 6.2 (1.4-6.5) 10^3/uL Lymph # (Auto) 1.4 (1.2-3.8) 10^3/uL [place] # (Auto) 0.8 (0.3-0.8) 10^3/uL Eos # (Auto) 0.3 (0.0-0.7) 10^3/uL Baso # (Auto) 0.0 (0.0-0.1) 10^3/uL Abs Immat Gran (auto) 0.03 (0.00-0.03) 10^3/uL Imm/Tot Granulo (auto) 0.3 (0.0-0.5) % Sodium 142 (136-145) mmol/L Potassium 3.8 (3.5-5.1) mmol/L Chloride 106 (98-107) mmol/L Carbon Dioxide 26.8 (21.0-32.0) mmol/L Anion Gap 13.0 BUN 28.0 H (7.0-18.0) mg/dL Creatinine 1.40 H (0.70-1.30) mg/dL Est GFR ( Amer) 59 L (>=60 mL/min/1.73m^2) Est GFR (Non-Af Amer) 49 L (>=60 mL/min/1.73m^2) BUN/Creatinine Ratio 20.0 Glucose 106 (74-106) mg/dL Lactate 1.3 (0.4-2.0) mmol/L Calcium 8.4 L (8.5-10.1) mg/dL Total Bilirubin 1.2 H (0.2-1.0) mg/dL AST 40 H (15-37) U/L ALT 73 H (16-63) U/L Alkaline Phosphatase 80 (46-116) U/L Total Protein 7.6 (6.4-8.2) g/dL Albumin 4.3 (3.4-5.0) g/dL Globulin 3.3 g/dL Albumin/Globulin Ratio 1.3 Lipase 48.0 (16.0-77.0) U/L Urine Color Yellow (YELLOW) Urine Clarity Clear (CLEAR) Urine pH 6.0 (5.0-9.0) Ur Specific [place] 1.010 (1.005-1.025) Urine Protein Negative (NEG/TRACE) mg/dL Urine Glucose (UA) Negative (NEGATIVE) mg/dL Urine Ketones Negative (NEGATIVE) mg/dL Urine Occult Blood Negative (NEGATIVE) Urine Nitrite Negative (NEGATIVE) Urine Bilirubin Negative (NEGATIVE) Urine Urobilinogen 0.2 (0.2-1.0) EU/dL Ur Leukocyte Esterase Negative (NEGATIVE) Imaging Data CT scan - abdomen: Radiologist's impression: ITS Impressions Abdomen/Pelvis CT 06/09/24 20:38 IMPRESSION: 1. No acute abdominal or pelvic pathology. 2. Borderline splenic enlargement with scattered calcified splenic granulomas. Correlate with labs. 3. Hepatic steatosis with tiny left hepatic lobe cyst. 4. Cholelithiasis. Electronically authenticated by: REGINA DELGADO Date: 06/09/2024 22:55 Discharge Plan Discharge Chief Complaint: Nausea/Vomiting/Diarrhea Clinical Impression: Diarrhea Patient Disposition: Home, Self-Care Time of Disposition Decision: 00:02 Condition: Fair Prescriptions / Home Meds: New dicyclomine 20 mg tablet 20 mg PO TID PRN (Reason: abdominal pain) Qty: 7 0RF ondansetron 4 mg tablet,disintegrating 4 mg PO Q4H PRN (Reason: nausea and vomiting) 3 Days Qty: 6 0RF No Action prednisone 20 mg tablet 40 mg PO DAILY 5 Days Qty: 10 0RF dmzeqhvjjlgujaj-elvjxvlwm-UM [Bromfed DM] 2-30-10 mg/5 mL syrup 5 ml PO Q4H PRN (Reason: cold symptoms) Qty: 118 0RF albuterol sulfate 90 mcg/actuation HFA aerosol inhaler 2 inh inhalation Q4H PRN (Reason: shortness of breath or wheezing) Qty: 6.7 0RF Print Language: Turkmen Instructions: Acute Diarrhea (ED), Acute Abdominal Pain (ED) Additional Instructions: We have discussed your lab work at bedside, including your kidney blood test BUN/CR your BUN was 28 (high normal 18). Your creatinine was 1.4 (high normal 1.4) [facility] when your last blood test on your kidneys were done and compared the results today to those. Continue to increase fluids at home, Gatorade, Powerade, water. Use Zofran or Bentyl as needed for nausea or abdominal cramping. If diarrhea is continuing after 10 to 14 days, follow[facility] for additional [facility] cultures and testing if indicated. Referrals: Physician,Non-Staff, MD [Primary Care Provider] - 1 week
[2024-06-09 21:03] LABS: Basophils Percent Auto 0.5 % (0.2-2.0); Eosinophils Absolute Auto 0.3 10^3/uL (0.0-0.7); Eosinophils Percent Auto 3.6 % (0.9-7.0); Hematocrit 45.8 % (42.0-54.0); Hemoglobin 15.6 g/dL (14.0-18.0); Immature Granulocytes Abs Auto 0.03 10^3/uL (0.00-0.03); Immature Granulocytes Pct Auto 0.3 % (0.0-0.5); Lymphocytes Absolute Auto 1.4 10^3/uL (1.2-3.8); Lymphocytes Percent Auto 15.6 % (20.5-60.0); Mean Corpuscular HGB Conc 34.1 g/dL (29.9-35.2); Mean Corpuscular Hemoglobin 30.5 pg (25.9-34.0); Mean Corpuscular Volume 89.6 fL (80.0-94.0); Mean Platelet Volume 10.9 fL (9.5-13.5); Monocytes Absolute Auto 0.8 10^3/uL (0.3-0.8); Monocytes Percent Auto 9.2 % (1.7-12.0); Neutrophils Absolute Auto 6.2 10^3/uL (1.4-6.5); Neutrophils Percent Auto 70.8 % (43.0-75.0); Platelet Count 165 10^3/uL (150-450); Red Blood Count 5.11 10^6/uL (4.70-6.10); Red Cell Distribution Width 13.5 % (11.0-15.0); White Blood Count 8.8 10^3/uL (4.0-11.0)
[2024-06-09 21:17] LABS: Alanine Aminotransferase 73 U/L (16-63); Albumin Globulin Ratio 1.3; Albumin Level 4.3 g/dL (3.4-5.0); Alkaline Phosphatase 80 U/L (46-116); Aspartate Amino Transferase 40 U/L (15-37); Bilirubin Total 1.2 mg/dL (0.2-1.0); Calcium 8.4 mg/dL (8.5-10.1); Carbon Dioxide 26.8 mmol/L (21.0-32.0); Chloride 106 mmol/L (98-107); Estimated GFR (African America 59 (>=60 mL/min/1.73m^2); Estimated GFR (Non-African Ame 49 (>=60 mL/min/1.73m^2); Globulin 3.3 g/dL; Glucose 106 mg/dL (74-106); Potassium 3.8 mmol/L (3.5-5.1); Sodium 142 mmol/L (136-145); Total Protein 7.6 g/dL (6.4-8.2)
[2024-06-09] MEDS: 0.9 % SODIUM CHLORIDE 1,000 ML 999 ML IV (21:19)
[2024-06-09 21:20] LABS: Lactate/Lactic Acid 1.3 mmol/L (0.4-2.0)
--- NOTE | 2024-06-09 22:01 | PC.NURSE ---
patient return back from ct, this patient voices no concerns and shows no signs of distress. this patient still unable to provide a urine sample and this patient aware waiting on all of the test results and for him to provide a urine sample
[2024-06-09 23:12] LABS: Bilirubin Urine NEGATIVE (NEGATIVE); Blood Urine NEGATIVE (NEGATIVE); Clarity Urine CLEAR (CLEAR); Color Urine YELLOW (YELLOW); Glucose Urine UA NEGATIVE (NEGATIVE); Ketones Urine NEGATIVE (NEGATIVE); Leukocyte Esterase Urine NEGATIVE (NEGATIVE); Nitrite Urine NEGATIVE (NEGATIVE); Protein Urine NEGATIVE (NEG/TRACE); Urobilinogen Urine 0.2 EU/dL (0.2-1.0)
[2024-06-09 23:13] LABS: Urine Microscopic Indicated NO
[2024-06-10 00:15] VITALS: BP 152/86; PULSE 76; TEMP 37; O2SAT 98
--- NOTE | 2024-06-10 00:21 | PC.NURSE ---
i gave this patient verbal and written discharge papers along with 2 e-scripts and this patient voices yes to understanding these. at time of discharge this patient voices no concerns and shows no signs of distress
== END 2024-06-10 00:22 | disposition home or self-care (01) ==
PROVIDERS: Physician Assistant; Emergency Provider Emergency Medicine
DX: R19.7 Diarrhea, unspecified (principal); K80.20 Calculus of gallbladder without cholecystitis without obstruction; K76.0 Fatty (change of) liver, not elsewhere classified
CPT/HCPCS: 36415; 74177; 80053; 81003; 83605; 83690; 85025; 99284; Q9967

== ENCOUNTER 2024-10-24 09:20 | Emergency (ER) | payer OTHER, SELFPAY ==
[2024-10-24] VITALS (17 sets, daily range): BP systolic 138–190; BP diastolic 70–102; PULSE 61–79; TEMP 36.6; O2SAT 95–98; BMI 28.1
--- NOTE | 2024-10-24 09:29 | ECG_ITS ---
The [facility] Test Date: 2024-10-24 Pat Name: SUMI MCKENZIE Department: Room: - Gender: Male [employer]: : 1945 Requested By: 1030 Order Number: [id number] Reading MD: KATHY PETERSEN M.D. Measurements Intervals [place] Rate: 66 P: 47 WV: 182 QRS: 11 QRSD: 78 T: 51 QT: 402 QTc: 415 Interpretive Statements 1100 Sinus rhythm 9110 normal ECG Compared to ECG 05/27/2021 10:08:05 No significant changes Electronically Signed On 10-24-2024 11:52:51 EDT by KATHY PETERSEN M.D.
--- NOTE | 2024-10-24 09:29 | XR_ITS ---
The [place] [address] Patient Name: SUMI MCKENZIE MRN: [id number] date: 1945 Sex: M Assigned Patient Location: ED.MAIN Current Patient Location: ED.MAIN Accession/Order Number: [id number] Exam Date: 10/24/2024 10:18 Report Date: 10/24/2024 10:19 At the request of: YAN KWONG MD Procedure: XR chest 1V PORTABLE AP ERECT CHEST 0922 hours CLINICAL HISTORY: Vertigo COMPARISON: 03/28/2024 There is continued slight elevation of the right hemidiaphragm. The heart is within normal limits. There is no vascular congestion. No consolidation is seen. There is no effusion or pneumothorax. The osseous structures are intact. Endplate spurring is noted spine. XR/XR chest 1V IMPRESSION: NO ACUTE FINDINGS Impression dictated by: Leslie Chandler M.D. 10/24/2024 10:19 AM Dictation Location: [place] [address] Electronically authenticated by: [id number] Y Date: 10/24/2024 10:19
--- NOTE | 2024-10-24 09:30 | CT_ITS ---
The [address] [address] Patient Name: SUMI MCKENZIE MRN: [id number] date: 1945 Sex: M Assigned Patient Location: ED.MAIN Current Patient Location: ED.MAIN Accession/Order Number: [id number] Exam Date: 10/24/2024 10:24 Report Date: 10/24/2024 10:27 At the request of: YAN KWONG MD Procedure: CT head/brain wo con CT BRAIN WITHOUT CONTRAST: CLINICAL HISTORY: Vertigo COMPARISON: None TECHNIQUE: Contiguous axial unenhanced images were obtained through the brain. This CT exam was performed using one or more following dose reduction techniques: Automated exposure control, adjustment of the mA and/or kV according to patient size, or use of iterative reconstruction technique. FINDINGS: There is mild generalized atrophy. The ventricles are normal in size and position. Mild microvascular changes are noted. There are no additional areas of abnormal attenuation. There is no hemorrhage, mass effect or extra-axial collections. There is mucosal thickening involving the right maxillary sinus and some of the ethmoid air cells. The mastoid air cells are clear. CT/CT head/brain wo con IMPRESSION: ATROPHY AND CHRONIC MICROVASCULAR CHANGES. MILD CHRONIC SINUSITIS. NO ACUTE INTRACRANIAL ABNORMALITY. Impression dictated by: Leslie Chandler M.D. 10/24/2024 10:27 AM Dictation Location: [place] [address] Electronically authenticated by: [id number] Y Date: 10/24/2024 10:27
--- NOTE | 2024-10-24 09:30 | ED.GENADUL1 ---
HPI HPI - General Adult General Chief complaint: Dizziness Stated complaint: DIZZINESS Time Seen by Provider: 10/24/24 09:22 History of Present Illness HPI narrative: 79-year-old male presents to the emergency department for dizziness. He had fallen and hit his head on the left side about 4 days ago. Since then he has been having these intermittent episodes where he feels like the room is spinning like a top. He does not take blood thinners. He sustained some abrasions to his left elbow but no other injuries and has no pain in the left elbow. He does not complain to me of a headache. No vision changes. Related Data Home Medications ?Medication ?Instructions ?Recorded ?Confirmed lisinopril 10 mg tablet 10 mg PO DAILY 10/24/24 10/24/24 Previous Rx's ?Medication ?Instructions ?Recorded albuterol sulfate 90 mcg/actuation 2 inh inhalation Q4H PRN shortness 03/28/24 aerosol inhaler of breath or wheezing #6.7 grams meclizine 25 mg tablet 25 mg PO QID PRN dizziness #20 tabs 10/24/24 Allergies Allergy/AdvReac Type Severity Reaction Status Date / Time No Known Drug Allergies Allergy Verified 10/24/24 09:31 Review of Systems ROS Narrative A ten point review of systems is negative except as noted above. [facility] Medical History (Updated 10/24/24 @ 11:44 by Chuy Weiss MD) GERD (gastroesophageal reflux disease) ?K21.9 - Gastro-esophageal reflux disease without esophagitis (ICD-10) Hypertension ?I10 - Essential (primary) hypertension (ICD-10) Social History Little interest or pleasure in doing things: not at all Feeling down, depressed, or hopeless: not at all Exam Narrative Exam Narrative: Nurses note and vital signs reviewed and patient is not hypoxic. General: The patient appears well and in no apparent distress. Patient is resting comfortably on cart. Skin: Warm, dry, no pallor noted. There is no rash noted. Head: Normocephalic, on the left side of his head in the temporal area of there may be a small abrasion Eye: Normal conjunctiva, no drainage, EOMI. PERRL Ears, Nose, Mouth, and Throat: oral mucosa is moist. Nares patent. Cardiovascular: Regular Rate and Rhythm Respiratory: Patient is in no distress, no accessory muscle use, lungs are clear to auscultation, no wheezing, rales or rhonchi Back: non-tender, no CVA tenderness bilaterally to percussion. GI: Normal bowel sounds, no tenderness to palpation, no masses appreciated. No rebound, guarding, or rigidity noted. Musculoskeletal: Left elbow has healing abrasion but has full range of motion with no discomfort Neurological: A&O x4, normal speech; upper and lower extremity strength 5 out of 5 and symmetric Psychiatric: Cooperative Constitutional Vital Signs, click to edit/add: Last Vital Signs Temp 98 F 10/24/24 09:24 Pulse 72 10/24/24 11:30 Resp 15 10/24/24 11:30 BP 148/70 H 10/24/24 11:30 Pulse Ox 97 10/24/24 11:30 O2 Del Method Room Air 10/24/24 09:24 Course Vital Signs Vital signs: Vital Signs Temperature 98 F 10/24/24 09:24 Pulse Rate 74 10/24/24 09:24 Respiratory Rate 18 10/24/24 09:24 Blood Pressure 190/102 H 10/24/24 09:24 Pulse Oximetry 98 10/24/24 09:24 Oxygen Delivery Method Room Air 10/24/24 09:24 Temperature 98 F 10/24/24 09:24 Pulse Rate 72 10/24/24 11:30 Respiratory Rate 15 10/24/24 11:30 Blood Pressure 148/70 H 10/24/24 11:30 Pulse Oximetry 97 10/24/24 11:30 Oxygen Delivery Method Room Air 10/24/24 09:24 Medical Decision Making [facility] Narrative Medical decision making narrative: His workup including CT brain is negative. His friend is taking him home. He is being prescribed Antivert. Treatment diagnosis and follow-up were discussed with the patient. Differential Diagnosis Differential Diagnosis: Vertigo, intracranial hemorrhage, dehydration, acute kidney Lab Data Lab results reviewed: Yes I reviewed the patient's lab results Labs: Lab Results 10/24/24 Range/Units 09:48 WBC 6.4 (4.0-11.0) 10^3/uL RBC 5.20 (4.70-6.10) 10^6/uL Hgb 15.7 (14.0-18.0) g/dL Hct 45.4 (42.0-54.0) % MCV 87.3 (80.0-94.0) fL MCH 30.2 (25.9-34.0) pg MCHC 34.6 (29.9-35.2) g/dL RDW 14.4 (11.0-15.0) % Plt Count 147 L (150-450) 10^3/uL MPV 11.2 (9.5-13.5) fL Neut % (Auto) 55.4 (43.0-75.0) % Lymph % (Auto) 27.1 (20.5-60.0) % [place] % (Auto) 10.3 (1.7-12.0) % Eos % (Auto) 6.1 (0.9-7.0) % Baso % (Auto) 0.9 (0.2-2.0) % Neut # (Auto) 3.5 (1.4-6.5) 10^3/uL Lymph # (Auto) 1.7 (1.2-3.8) 10^3/uL [place] # (Auto) 0.7 (0.3-0.8) 10^3/uL Eos # (Auto) 0.4 (0.0-0.7) 10^3/uL Baso # (Auto) 0.1 (0.0-0.1) 10^3/uL Abs Immat Gran (auto) 0.01 (0.00-0.03) 10^3/uL Imm/Tot Granulo (auto) 0.2 (0.0-0.5) % Sodium 143 (136-145) mmol/L Potassium 4.0 (3.5-5.1) mmol/L Chloride 105 (98-107) mmol/L Carbon Dioxide 24.5 (21.0-32.0) mmol/L Anion Gap 17.5 BUN 20.0 H (7.0-18.0) mg/dL Creatinine 1.27 (0.70-1.30) mg/dL Est GFR ( Amer) >60 (>=60 mL/min/1.73m^2) Est GFR (Non-Af Amer) 55 L (>=60 mL/min/1.73m^2) BUN/Creatinine Ratio 15.7 Glucose 118 H (74-106) mg/dL Calcium 9.1 (8.5-10.1) mg/dL Imaging Data CT scan - head: Radiologist's impression: ITS Impressions Chest X-Ray 10/24/24 09:29 IMPRESSION: NO ACUTE FINDINGS Impression dictated by: Leslie Chandler M.D. 10/24/2024 10:19 AM Dictation Location: [employer] Electronically authenticated by: [id number] Y Date: 10/24/2024 10:[address] 10/24/24 09:30 IMPRESSION: ATROPHY AND CHRONIC MICROVASCULAR CHANGES. MILD CHRONIC SINUSITIS. NO ACUTE INTRACRANIAL ABNORMALITY. Impression dictated by: Leslie Chandler M.D. 10/24/2024 10:27 AM Dictation Location: [employer] Electronically authenticated by: [id number] Y Date: 10/24/2024 10:27 ECG Data Attestation: I personally reviewed and interpreted this ECG as follows: (EKG on my interpretation shows normal sinus rhythm with rate of 66 and no acute change) Discharge Plan Discharge Chief Complaint: Dizziness Clinical Impression: Vertigo Patient Disposition: Home, Self-Care Time of Disposition Decision: 11:44 Condition: Good Mode of Transportation: Private Vehicle Prescriptions / Home Meds: New meclizine 25 mg tablet 25 mg PO QID PRN (Reason: dizziness) Qty: 20 0RF No Action albuterol sulfate 90 mcg/actuation HFA aerosol inhaler 2 inh inhalation Q4H PRN (Reason: shortness of breath or wheezing) Qty: 6.7 0RF lisinopril 10 mg tablet 10 mg PO DAILY Print Language: Japanese Instructions: Vertigo (ED) Referrals: Physician,Non-Staff, MD [Physician] - 1 week
--- OUTSIDE RECORDS SUMMARY | 2024-10-24 09:32 | XMS_ITS | CCD ---
Author Organization [facility] Care Team Providers Care Field Sales Representative Name Role Phone DR BRYN TAPIA Primary [...] 8 hours 14 December 16, 2023 12:00am [facility] (No Known Home Meds) (1 source) Start: 12-16-2023 [facility] (No Known Home Meds) Active December 16, [...] (Bld) [Mass/Vol] 39.0 pg/mL Normal <=1,800.[address] [facility] Comment on above: Performed By: #### C MP, HSTROPN, BNP #### [facility] [address] [place] [address] Dr. Chio Rojas CBC W MANUAL DIFFon 05-27-20 21 ATYPICAL LYMPH # Normal [facility] Comment on above: Performed By: #### C BCMAN #### [facility] [address] [place] [address] Dr. Chio Rojas ATYPICAL LYMPH % Normal [facility] Comment on above: Performed By: #### C BCMAN #### [facility] [address] [place] [address] Dr. Chio Rojas BAND # 0.1 103/ul Normal 0.0-0.3 [facility] Comment on above: Performed By: #### C DEMIMAN #### [facility] [address] [place] [address] Dr. Chio Rojas BAND % 1 % Normal 0-[address] [facility] Comment on above: Performed By: #### C BCYAHAIRA #### [facility] [address] [place] [address] Dr. Chio Rojas BASOM # 0.09 103/ul Normal 0.00-0.10 [facility] Comment on above: Performed By: #### C GISSELLE #### [facility] [address] [place] [address] Dr. Chio Rojas BASOM % 1.0 % Normal 0.2-2.0 [facility] Comment on above: Performed By: #### C BCMAN #### [facility] [address] [place] [address] Dr. Chio Rojas BLAST # Normal [facility] Comment on above: Performed By: #### C BCMAN #### [facility] [address] [place] [address] Dr. Chio Rojas BLAST % Normal [facility] Comment on above: Performed By: #### C BCMAN #### [facility] [address] [address] [address] Chio Rojas CORRECTED WBC Normal 4.0-11.[address] [facility] Comment on above: Performed By: #### C GISSELLE #### [facility] [address] [place] [address] Dr. Chio Rojas EOS # 0.68 103/ul Normal 0.00-0.70 [facility] Comment on above: Performed By: #### C GISSELLE #### [facility] [address] [address] [address] Chio Rojas EOS% 8.0 % Critically high 0.9-7.0 [facility] Comment on above: Performed By: #### C GISSELLE #### [facility] [address] [place] [address] Dr. Chio Rojas HCT 48.5 % Normal 42.0-54.0 [facility] Comment on above: Performed By: #### C GISSELLE #### [facility] [address] [place] [address] Dr. Chio Rojas HGB 16.2 g/dl Normal 14.0-18.0 [facility] Comment on above: Performed By: #### C GISSELLE #### [facility] [address] [place] [address] Dr. Chio Rojas LYMPHM # 2.04 103/ul Normal 1.20-3.[address] [facility] Comment on above: Performed By: #### C GISSELLE #### [facility] [address] [place] [address] Dr. Chio Rojas LYMPHM% 24.0 % Normal 20.5-60.[address] [facility] Comment on above: Performed By: #### C GISSELLE #### [facility] [address] [place] [address] Dr. Chio Rojas MCH 29.9 pg Normal 25.9-34.0 [facility] Comment on above: Performed By: #### C GISSELLE #### [facility] [address] [place] [address] Dr. Chio Rojas MCHC 33.4 g/dl Normal 29.9-35.2 [facility] Comment on above: Performed By: #### C BCYAHAIRA #### [facility] [address] [place] [address] Dr. Chio Rojas MCV 89.6 fL Normal 80.0-94.0 [facility] Comment on above: Performed By: #### C GISSELLE #### [facility] [address] [place] [address] Dr. Chio Rojas METAMYELOCYTE # Normal [facility] Comment on above: Performed By: #### C BCYAHAIRA #### [facility] [address] [place] [address] Dr. Chio Rojas METAMYELOCYTE % Normal [facility] Comment on above: Performed By: #### C GISSELLE #### [facility] [address] [place] [address] Dr. Chio Rojas MONOM# 0.94 103/ul Critically high 0.30-0.80 [facility] Comment on above: Performed By: #### C GISSELLE #### [facility] [address] [place] [address] Dr. Chio Rojas MONOM% 11.0 % Normal 1.7-12.0 [facility] Comment on above: Performed By: #### C GISSELLE #### [facility] [address] [place] [address] Dr. Chio Rojas MPV 11.3 fL Normal 9.5-13.5 [facility] Comment on above: Performed By: #### C GISSELLE #### [facility] [address] [place] [address] Dr. Chio Rojas MYELOCYTE # Normal [facility] Comment on above: Performed By: #### C GISSELLE #### [facility] [address] [place] [address] Dr. Chio Rojas MYELOCYTE % Normal [facility] Comment on above: Performed By: #### C GISSELLE #### [facility] [address] [place] [address] Dr. Chio Rojas NRBC Normal [facility] Comment on above: Performed By: #### C GISSELLE #### [facility] [address] [address] [address] Chio Rojas PLT 142 103/ul Critically low 150-450 [facility] Comment on above: Performed By: #### C GISSELLE #### [facility] [address] [address] [address] Chio Rojas RBC 5.41 106/ul Normal 4.70-6.[address] [facility] Comment on above: Performed By: #### C GISSELLE #### [facility] [address] [address] [address] Chio Rojas RDW 14.0 % Normal 11.0-15.0 [facility] Comment on above: Performed By: #### C GISSELLE #### [facility] [address] [place] [address] Dr. Chio Rojas SEG # 4.67 103/ul Normal 1.40-6.50 [facility] Comment on above: Performed By: #### C GISSELLE #### [facility] [address] [place] [address] Dr. Chio Rojas SEG % 55.0 % Normal 43.0-75.0 [facility] Comment on above: Performed By: #### C GISSELLE #### [facility] [address] [place] [address] Dr. Chio Rojas WBC 8.5 103/ul Normal 4.0-11.0 [facility] Comment on above: Performed By: #### Linda PITTS #### [facility] [address] [place] [address] Dr. Chio Rojas CTA CHEST WO W [...] NICK MADRID Date: 2021-05-27 12:[address] [facility] Covid-19 PCR (CVDTBH)on 05-15 SARS-CoV-2 (COVID-19) RNA CHAYO+probe Ql (Unsp spec) Not detected Normal NOT DETECTED [facility] Comment on above: Result Comment: When diagnostic testing is negative, the possibility of a false negative should be considered in the context of a patient's recent exposures and the presence of clinical signs and symptoms consistent with SARS-CoV-2. This test is not yet approved or cleared by the [place] Food and Drug Administration (FDA). This test was developed by [employer], [place], [place]. The performance characteristics of this test were validated by [facility]. The results are not intended to be used as the sole means for clinical diagnosis or patient management decisions. [facility] is authorized under Clinical Laboratory Improvement [...] for this test is supported by the [place] of Health and Human Service's declaration that [...] used). Performed By: #### C VDTBH #### [facility] [address] [place] [address] Dr. Chio Rojas D-DIMERon 05-27-2021 D-DIMER 0.65 mg/L FEU Critically high 0.19-0.50 [facility] Comment on above: Performed By: #### P TT, PT, DDIM #### [facility] [address] [place] [address] Dr. Chio Rojas D-DIMER COMMENTS SEE BELOW Normal [facility] Comment on above: Result Comment: Incr eases [...] By: #### P TT, PT, DDIM #### [facility] [address] [place] [address] Dr. Chio Rojas PROF 14(COMP METB)on 021 Albumin [Mass/Vol] 3.8 g/dL Normal 3.5-5.0 [facility] Comment on above: Performed By: #### C MP, HSTROPN, BNP #### [facility] [address] [place] [address] Dr. Chio Rojas Albumin/Globulin [Mass ratio] 1.0 {ratio} Normal [facility] Comment on above: Performed By: #### C MP, HSTROPN, BNP #### [facility] [address] [place] [address] Dr. Chio Rojas ALP [Catalytic activity/Vol] 87 U/L Normal 38-[address] [facility] Comment on above: Performed By: #### C MP, HSTROPN, BNP #### [facility] [address] [address] [address] Chio Rojas ALT [Catalytic activity/Vol] 74 U/L Critically high 21-72 [facility] Comment on above: Performed By: #### C MP, HSTROPN, BNP #### [facility] [address] [address] [address] Chio Rojas Anion gap [Moles/Vol] 27.1 mmol/L Normal [facility] Comment on above: Performed By: #### C MP, HSTROPN, BNP #### [facility] [address] [address] [address] Chio Rojas AST [Catalytic activity/Vol] 41 U/L Normal 17-[address] [facility] Comment on above: Performed By: #### C MP, HSTROPN, BNP #### [facility] [address] [place] [address] Dr. Chio Rojas Bilirubin [Mass/Vol] 1.3 mg/dL Normal 0.2-1.3 [facility] Comment on above: Performed By: #### C MP, HSTROPN, BNP #### [facility] [address] [address] [address] Chio Rojas Calcium [Mass/Vol] 9.2 mg/dL Normal 8.4-10.2 [facility] Comment on above: Performed By: #### C MP, HSTROPN, BNP #### [facility] [address] [address] [address] Chio Rojas Chloride [Moles/Vol] 102 mmol/L Normal 98-[address] [facility] Comment on above: Performed By: #### C MP, HSTROPN, BNP #### [facility] [address] [address] [address] Chio Rojas CO2 [Moles/Vol] 25.5 mmol/L Normal 22.0-30.0 [facility] Comment on above: Performed By: #### C MP, HSTROPN, BNP #### [facility] [address] [address] [address] Chio Rojas Creatinine [Mass/Vol] 1.24 mg/dL Normal 0.66-1.25 [facility] Comment on above: Performed By: #### C MP, HSTROPN, BNP #### [facility] [address] [place] [address] Dr. Chio Rojas EGFR-AF ROMANIAN >60 Normal >=60 [facility] Comment on above: Performed By: #### C MP, HSTROPN, BNP #### [facility] [address] [place] [address] Dr. Chio Rojas EGFR-NON AF ROMANIAN 57 mL/min/1.73m2 Critically low >=60 [facility] Comment on above: Performed By: #### C MP, HSTROPN, BNP #### [facility] [address] [place] [address] Dr. Chio Rojas Globulin (S) [Mass/Vol] 3.8 g/dL Normal [facility] Comment on above: Performed By: #### C MP, HSTROPN, BNP #### [facility] [address] [place] [address] Dr. Chio Rojas Glucose [Mass/Vol] 105 mg/dL Normal 74-106 [facility] Comment on above: Performed By: #### C MP, HSTROPN, BNP #### [facility] [address] [place] [address] Dr. Chio Rojas Potassium [Moles/Vol] 4.2 mmol/L Normal 3.4-5.0 [facility] Comment on above: Performed By: #### C MP, HSTROPN, BNP #### [facility] [address] [place] [address] Dr. Chio Rojas Protein [Mass/Vol] 7.6 g/dL Normal 6.1-8.2 [facility] Comment on above: Performed By: #### C MP, HSTROPN, BNP #### [facility] [address] [place] [address] Dr. Chio Rojas Sodium [Moles/Vol] 141 mmol/L Normal 137-145 [facility] Comment on above: Performed By: #### C MP, HSTROPN, BNP #### [facility] [address] [place] [address] Dr. Chio Rojas Urea nitrogen [Mass/Vol] 29.0 mg/dL Critically high 9.0-20.0 [facility] Comment on above: Performed By: #### C MP, HSTROPN, BNP #### [facility] [address] [place] [address] Dr. Chio Rojas Urea nitrogen/Creatinine [Mass ratio] 23.4 mg/mg Normal [facility] Comment on above: Performed By: #### C MP, HSTROPN, BNP #### [facility] [address] [place] [address] Dr. Chio Rojas PROTIMEon 05-27-2021 INR Coag (PPP) [Relative time] 1.01 {INR} Normal [facility] Comment on above: Performed By: #### P TT, PT, DDIM #### [facility] [address] [place] [address] Dr. Chio Rojas INR GUIDELINES SEE BELOW Normal [facility] Comment on above: Result Comment: BIN RED INR: 2.0 - 3.0 CONDITIONS NOT LISTED BELOW 2.5 - 3.5 FOR PROSTHETIC HEART VALVE REPLACEMENT 2.5 - 3.5 RECURRENT THROMBOSIS Performed By: #### P TT, PT, DDIM #### [facility] [address] [place] [address] Dr. Chio Rojas PT Coag (PPP) [Time] 10.9 s Normal 9.0-11.[address] [facility] Comment on above: Performed By: #### P TT, PT, DDIM #### [facility] [address] [place] [address] Dr. Chio Rojas PTTon 05-27-2021 aPTT Coag (Bld) [Time] 28.2 s Normal 22.3-36.2 [facility] Comment on above: Performed By: #### P TT, PT, DDIM #### [facility] [address] [place] [address] Dr. Chio Rojas TROPONIN, HIGH SENSITIVITYon 05-27-2021 HSTROP 11.9 pg/mL Normal 4.0-42.[address] [facility] Comment on above: Result Comment: CUT- OFF POINTS HAVE BEEN ESTABLISHED BASED ON THE FOURTH UNIVERSAL DEFINITIONS OF MYOCARDIAL INFARCTION. THE UPPER REFERENCE LIMIT (URL) OF TROPONIN, DEFINED THE 99TH PERCENTILE OF cTnI DISTRIBUTION IN A REFERENCE POPULATION, HAS BEEN CONFIRMED THE DECISION THRESHOLD FOR NM DIAGNOSIS. Performed By: #### C MP, HSTROPN, BNP #### [facility] [address] [address] [address] Chio Rojas Vital Signs Date Time Vital Sign Value Performing Clinician Faci lity 12-16-2023 11:040 Body height 175.26 cm [facility] 12-16-2023 11:0400 Body mass index (BMI) [Ratio] 27.3 kg/m2 [facility] 12-16-2023 11:07-0400 Body temperature 98.2 [degF] [facility] 12-16-2023 11:070400 Body weight 84.08 kg [facility] 12-16-2023 11:07-0400 Diastolic blood pressure 70 mm[Hg] [facility] 12-16-2023 11:07-0400 Heart rate 82 /min [facility] 12-16-2023 11:07-0400 Respiratory rate 18 /min [facility] 12-16-2023 11:07-0400 SaO2% (BldA) [Mass fraction] 98 % [facility] 12-16-2023 11:07-0400 Systolic blood pressure 120 mm[Hg] [facility] Encounters Encounter Date Encounter Type Care Provider Facility Start: 12-16-2023 End: 12-16-2023 ambulatory [facility] Work Phone: Start: 12-16-2023 End: 12-16-2023 Patient encounter procedure [facility] Work Phone: Start: 05-27-2021 End: 05-27-[address] DOCTOR TAPIA Facility: Payers Date Payer Category Payer Unknown [id number] 1945 Unknown [id number] Medicare Medicare [id number] Social History Date Type Detail Facility Tobacco smoking stat [email or web address] Unknown if ever smoked [facility] Work Phone: Start: 1945 Sex Assigned At Male F [facility] Evaluation note Note Date & Type Note Facility Evaluation note No assessment information availa ble [facility] Work Phone: Summary Purpose Family History Relationship [...] content) DATE CREATED AUTHOR 05/29/2021 [facility] (unrecognized sec tion and content) [...] BE BASED ON THE PRIMARY CLINICAL RECORDS. [facility]. provides no warranty or guarantee of the accuracy or completeness of information in this document.
[2024-10-24] MEDS: MECLIZINE HCL 12.5 MG TABLET 25 MG PO (09:38)
[2024-10-24 10:00] LABS: Basophils Absolute Auto 0.1 10^3/uL (0.0-0.1); Basophils Percent Auto 0.9 % (0.2-2.0); Eosinophils Absolute Auto 0.4 10^3/uL (0.0-0.7); Eosinophils Percent Auto 6.1 % (0.9-7.0); Hematocrit 45.4 % (42.0-54.0); Hemoglobin 15.7 g/dL (14.0-18.0); Immature Granulocytes Abs Auto 0.01 10^3/uL (0.00-0.03); Immature Granulocytes Pct Auto 0.2 % (0.0-0.5); Lymphocytes Absolute Auto 1.7 10^3/uL (1.2-3.8); Lymphocytes Percent Auto 27.1 % (20.5-60.0); Mean Corpuscular HGB Conc 34.6 g/dL (29.9-35.2); Mean Corpuscular Hemoglobin 30.2 pg (25.9-34.0); Mean Corpuscular Volume 87.3 fL (80.0-94.0); Mean Platelet Volume 11.2 fL (9.5-13.5); Monocytes Absolute Auto 0.7 10^3/uL (0.3-0.8); Monocytes Percent Auto 10.3 % (1.7-12.0); Neutrophils Absolute Auto 3.5 10^3/uL (1.4-6.5); Neutrophils Percent Auto 55.4 % (43.0-75.0); Platelet Count 147 10^3/uL (150-450); Red Cell Distribution Width 14.4 % (11.0-15.0); White Blood Count 6.4 10^3/uL (4.0-11.0)
[2024-10-24 10:07] LABS: Anion Gap 17.5; BUN Creatinine Ratio 15.7; Calcium 9.1 mg/dL (8.5-10.1); Carbon Dioxide 24.5 mmol/L (21.0-32.0); Chloride 105 mmol/L (98-107); Estimated GFR (African America >60 (>=60 mL/min/1.73m^2); Estimated GFR (Non-African Ame 55 (>=60 mL/min/1.73m^2); Glucose 118 mg/dL (74-106); Sodium 143 mmol/L (136-145)
== END 2024-10-24 12:08 | disposition home or self-care (01) ==
PROVIDERS: Emergency Provider Emergency Medicine
DX: R42 Dizziness and giddiness (principal); J32.8 Other chronic sinusitis; W19.XXXA Unspecified fall, initial encounter; S50.312A Abrasion of left elbow, initial encounter
CPT/HCPCS: 36415; 70450; 71045; 80048; 85025; 93005; 99285

== ENCOUNTER 2025-05-11 08:45 | Emergency (ER) | payer MEDICARE, OTHER, SELFPAY ==
[2025-05-11 08:52] VITALS: BP 154/108; PULSE 112; TEMP 36.4; O2SAT 97; BMI 23.3
--- NOTE | 2025-05-11 08:55 | XR_ITS ---
The [place] [id number] Patient Name: SUMI MCKENZIE MRN: [id number] date: 1945 Sex: M Assigned Patient Location: ER Current Patient Location: ER Accession/Order Number: [id number] Exam Date: 05/11/2025 09:10 Report Date: 05/11/2025 09:21 At the request of: YAN KWONG MD Procedure: XR foot LT min 3V LEFT FOOT - 3 views CLINICAL HISTORY: fall COMPARISON: None FINDINGS: No focal soft tissue abnormality. No acute bony process is seen. Scattered degenerative changes without bony erosions. Plantar spurring. XR/XR foot LT min 3V IMPRESSION: NO ACUTE BONY PROCESS. Impression dictated by: Fazal Amezquita Jr., D.O. 05/11/2025 9:21 AM Dictation Location: [place] [address] Electronically authenticated by: [id number] Y Date: 05/11/2025 09:21
--- NOTE | 2025-05-11 08:55 | XR_ITS ---
[facility] [place] [id number] Patient Name: SUMI MCKENZIE MRN: [id number] date: 1945 Sex: M Assigned Patient Location: ER Current Patient Location: ER Accession/Order Number: [id number] Exam Date: 05/11/2025 09:10 Report Date: 05/11/2025 09:22 At the request of: YAN KWONG MD Procedure: XR ankle LT min 3V LEFT ANKLE - 3 views CLINICAL HISTORY: fall, twisted COMPARISON: None FINDINGS: Mild soft tissue swelling. Ankle mortise appears intact. Presumed remote injury involving the distal fibula. XR/XR ankle LT min 3V IMPRESSION: MILD SOFT TISSUE SWELLING. PRESUMED REMOTE INJURY INVOLVING THE DISTAL FIBULA. CORRELATION WITH AREA OF PAIN IS RECOMMENDED. Impression dictated by: Fazal Amezquita Jr., D.O. 05/11/2025 9:22 AM Dictation Location: [place] [address] Electronically authenticated by: [id number] Y Date: 05/11/2025 09:22
--- NOTE | 2025-05-11 08:56 | ED_ITS ---
HPI HPI - General Adult General Chief complaint: Extremity Injury, Lower Stated complaint: FALL, LOWER EXTREMITY PAIN/SWELLING Time Seen by Provider: 05/11/25 08:52 Source: patient Mode of arrival: walk-in Limitations: no limitations History of Present Illness HPI narrative: 80-year-old male presents for left ankle and left foot pain. Yesterday afternoon he fell when he went outside to get the mail and he twisted his ankle and he hurt his foot. He scraped his left knee and his right elbow but those do not hurt. He has had a tetanus shot within the last 10 years. He did not hit his head. Related Data Home Medications ?Medication ?Instructions ?Recorded ?Confirmed lisinopril 10 mg tablet 10 mg PO DAILY 10/24/2410/13 Previous Rx's ?Medication ?Instructions ?Recorded albuterol sulfate 90 mcg/actuation 2 inh inhalation Q4 H PRN shortness 03/28/24 aerosol inhaler of breath or wheezing #6.7 g jessie meclizine 25 mg tablet 25 mg PO QID PRN dizziness # 20 tabs 10/24/24 ibuprofen 800 mg tablet 800 mg PO Q8H PRN pain #20 t abs 05/11/25 Allergies Allergy/AdvReac Type Severity Reaction Status Date / Time No Known Drug Allergies Allergy Verified 10/24/24 09:31 Opioid HPI Opioid Management Most Recent Opioid Data: Last Pain Scale 8 Today, 09:04 Review of Systems ROS Narrative A ten point review of systems is negative except as noted above. PFSH [facility] Medical History (Updated 05/11/25 @ 09:34 by Chuy Weiss MD) GERD (gastroesophageal reflux disease) ?K21.9 - Gastro-esophageal reflux disease without esophagitis (ICD-10) Hypertension ?I10 - Essential (primary) hypertension (ICD-10) Social History Little interest or pleasure in doing things: not at all Feeling down, depressed, or hopeless: not at all Exam Narrative Exam Narrative: Nurses note and vital signs reviewed General:The patient appears well and in no apparent distress.Patient is resting comfortably on cart. Skin:Warm, dry, no pallor noted.there are superficial abrasions to the left knee and the right elbow. These joints have full range of motion. Head:Normocephalic, atraumatic Eye: Normal conjunctiva, no drainage Ears, Nose, Mouth, and Throat: oral mucosa is moist. Nares patent. Cardiovascular:Regular Rate and Rhythm Respiratory:Patient is in no distress, no accessory muscle use, lungs are clear to auscultation, no wheezing, rales or rhonchi Back:non-tender GI: Soft and nontender Musculoskeletal: He has some tenderness at the lateral aspect of the left foot and the lateral malleolus. Skin intact. No deformity. Neurological:A&O, normal speech Psychiatric:Cooperative Constitutional Vital Signs, click to edit/add: Last Vital Signs Temp 97.6 F 05/11/25 08:52 Pulse 112 H 05/11/25 08:52 Resp 18 05/11/25 08:52 BP 154/108 H 05/11/25 08:52 Pulse Ox 97 05/11/25 08:52 O2 Del Method Room Air 05/11/25 08:52 Course Vital Signs Vital signs: Vital Signs Temperature 97.6 F 05/11/25 08:52 Pulse Rate 112 H 05/11/25 08:52 Respiratory Rate 18 05/11/25 08:52 Blood Pressure 154/108 H 05/11/25 08:52 Pulse Oximetry 97 05/11/25 08:52 Oxygen Delivery Method Room Air 05/11/25 08:52 Temperature 97.6 F 05/11/25 08:52 Pulse Rate 112 H 05/11/25 08:52 Respiratory Rate 18 05/11/25 08:52 Blood Pressure 154/108 H 05/11/25 08:52 Pulse Oximetry 97 05/11/25 08:52 Oxygen Delivery Method Room Air 05/11/25 08:52 Medical Decision Making MDM Narrative Medical decision making narrative: X-rays per radiologist are negative for acute findings. Chet wrap applied, application checked by me and found to be appropriate, he is neurovascularly intact. He was prescribed ibuprofen. Treatment diagnosis and follow-up were discussed with the patient. Differential Diagnosis Differential Diagnosis: Ankle sprain, ankle fracture Imaging Data Left ankle, left foot x-rays: Radiologist's impression: ITS Impressions Ankle X-Ray 05/11/25 08:55 IMPRESSION: MILD SOFT TISSUE SWELLING. PRESUMED REMOTE INJURY INVOLVING THE DISTAL FIBULA. CORRELATION WITH AREA OF PAIN IS RECOMMENDED. Impression dictated by: Fazal Amezquita Jr., Anastasia.O. 05/11/2025 9:22 AM Dictation Location: [id number] Electronically authenticated by: [id number] Y Date: 05/11/2025 09:22 Foot X-Ray 05/11/25 08:55 IMPRESSION: NO ACUTE BONY PROCESS. Impression dictated by: Fazal Amezquita Jr., D.O. 05/11/2025 9:21 AM Dictation Location: [id number] Electronically authenticated by: [id number] Y Date: 05/11/2025 09:21 Discharge Plan Discharge Chief Complaint: Extremity Injury, Lower Clinical Impression: Left ankle sprain Patient Disposition: Home, Self-Care Time of Disposition Decision: 09:34 Condition: Good Mode of Transportation: Private Vehicle Prescriptions / Home Meds: New ibuprofen 800 mg tablet 800 mg PO Q8H PRN (Reason: pain) Qty: 20 0RF No Action albuterol sulfate 90 mcg/actuation HFA aerosol inhaler 2 inh inhalation Q4H PRN (Reason: shortness of breath or wheezing) Qty: 6.7 0RF lisinopril 10 mg tablet 10 mg PO DAILY meclizine 25 mg tablet 25 mg PO QID PRN (Reason: dizziness) Qty: 20 0RF Print Language: Angolan Instructions: Ankle Sprain (ED) Referrals: [facility]AB[facility]WO[facility] [Primary Care Provider, Family Practice] - 1 week
--- OUTSIDE RECORDS SUMMARY | 2025-05-11 09:40 | XMS_ITS | CCD ---
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 Name Role Phone DR BRYN TAPIA Primary Care Unavailable DR NICK MADRID Consulting Unavailable DIAZ WRAY Attending Unavailable DIAZ WRAY Admitting Unavailable DIAZ WRAY Consulting Unavailable Medications Current Medications MedicationDrug Class(es)DatesSig (Normalized)Sig (Original)hydrOXYzine hydrochloride 25 mg oral tablet (1 source)AntihistamineStart: 63-22-2543Ttiybrhohnq Hcl Active 25 MG PO every 6 to 8 hours 14 December 16, 2023 12:00amNo Name (No Known Home Meds) (1 source)Start: 97-85-9134Ng Name (No Known Home Meds) Active December 16, 2023 12:00am Problems Active Problems Problem ClassificationProblemDateDocumented DateEpisodic/ChronicOther lower respiratory disease (1 source)Other nonspecific abnormal finding of lung field; Translations: [OTH NONSPECIFIC ABN FIND LNG FIELD]Onset: 52-38-8087LyitoyycPgkbb lower respiratory disease (1 source)Shortness of breath; Translations: [SHORTNESS OF BREATH]Onset: 41-47-9239OvbirjnxBvqfpketh (except that caused by tuberculosis or sexually transmitted disease) (1 source)Pneumonia, unspecified organism; Translations: [PNEUMONIA UNSPECIFIED ORGANISM]Onset: 41-91-3555GytozsdnZzzxbotnlcfh (2 sources)COUGH, UNSPECIFIED; Translations: [COUGH, UNSPECIFIED]Onset: 70-53-9229Cwbpxzxububa (1 source)CONTACT W/AND (SUSP) EXPOS COVID-19; Translations: [CONTACT W/AND (SUSP) EXPOS COVID-19]Onset: 05-29-2021 Past or Other Problems Problem ClassificationProblemDateDocumented DateEpisodic/ChronicUnclassified (1 source)COUGH, UNSPECIFIED; Translations: [COUGH, UNSPECIFIED]Onset: 05-27-2021 Results Test NameValueInterpretationReference RangeFacilityBNPon 21-84-8921Uyuchlqohic peptide B (Bld) [Mass/Vol]39.0 pg/mLNormal<=1,800.0Ohio[facility] Southeastern Medical CenterComment on above:Performed By: #### CMP, HSTROPN, BNP #### [facility] [address] [place] [address] Dr. Chio Weiss W MANUAL DIFFon 98-62-8716UJORZZDA LYMPH #NormalThe [facility] CenterComment on above:Performed By: #### RODOLFO #### [facility] [address] [place] [address] Dr. Chio FieldsICAL LYMPH %NormalThe [facility] CenterComment on above: Performed By: #### RODOLFO #### [facility] [address] [place] [address] Dr. Chio Maldonado #0.1 103/ulNormal0.0-0.3The [facility] CenterComment on above:Performed By: #### RODOLFO #### [facility] [address] [place] [address] Dr. Chio Maldonado %1 %Normal0-5The [facility] CenterComment on above:Performed By: #### RODOLFO #### [facility] [address] [place] [address] Dr. Chio Dorman #0.09 103/ulNormal0.00-0.10The [facility] HospitalComment on above:Performed By: #### RODOLFO #### [facility] [address] [place] [address] Dr. Chio Dorman %1.0 %Normal0.2-2.0The [facility] CenterComment on above: Performed By: #### RODOLFO #### [facility] [address] [place] [address] Dr. Chio Bagley #NormalThe [facility] HospitalComment on above:Performed By: #### RODOLFO #### [facility] [address] [place] [address] Dr. Chio RojasBLAST %NormalOhiohealth Southeastern Medical CenterComment on above:Performed By: #### RODOLFO #### [facility] [address] [place] [address] Dr. Chio RojasCORRECTED WBCNormal4.0-11.0The [facility] CenterComment on above: Performed By: #### RODOLFO #### [facility] [address] [place] [address] Dr. Chio Mullins #0.68 103/ulNormal0.00-0.70The [facility] CenterComment on above:Performed By: #### RODOLFO #### [facility] [address] [place] [address] Dr. Chio Mullins%8.0 %Critically high0.9-7.0The [facility] CenterComment on above:Performed By: #### RODOLFO #### [facility] [address] [place] [address] Dr. Chio RojasHCT48.5 %Hewoug38.0-54.0The [facility] CenterComment on above: Performed By: #### RODOLFO #### [facility] [address] [place] [address] Dr. Chio RojasHGB16.2 g/xzNpbkgj65.0-18.0The [facility] CenterComcorewell health ludington hospital on above: Performed By: #### RODOLFO #### [facility] [address] [place] [address] Dr. Chio Angel #2.04 103/ulNormal1.20-3.80The [facility] CenterComcorewell health ludington hospital on above:Performed By: #### RODOLFO #### [facility] [address] [place] [address] Dr. Chio Angel%24.0 %Tmsptq38.5-60.0The [facility] CenterComment on above:Performed By: #### RODOLFO #### [facility] [address] [place] [address] Dr. Chio RojasMCH29.9 skGzxjkt23.9-34.0The [facility] CenterComment on above: Performed By: #### RODOLFO #### [facility] [address] [place] [address] Dr. Chio DamonHC33.4 g/jlPhkrhd17.9-35.2The [facility] CenterComment on above:Performed By: #### RODOLFO #### [facility] [address] [place] [address] Dr. Chio DamonV89.6 hBPoldcq73.0-94.0The [facility] CenterComment on above: Performed By: #### RODOLFO #### [facility] [address] [place] [address] Dr. Chio Nieves #NormalThe [facility] CenterComment on above: Performed By: #### RODOLFO #### [facility] [address] [place] [address] Dr. Chio HendrixOCYTE %NormalThe [facility] CenterComment on above: Performed By: #### RODOLFO #### [facility] [address] [place] [address] Dr. Chio Brambila#0.94 103/ulCritically high0.30-0.80The [facility] on above:Performed By: #### RODOLFO #### [facility] [address] [place] [address] Dr. Chio Brambila%11.0 %Normal1.7-12.0The [facility] CenterComment on above: Performed By: #### RODOLFO #### [facility] [address] [place] [address] Dr. Chio WoodwardV11.3 fLNormal9.5-13.5The [facility] CenterComment on above: Performed By: #### RODOLFO #### [facility] [address] [place] [address] Dr. Chio Dave #NormalThe [facility] CenterComment on above:Performed By: #### RODOLFO #### [facility] [address] [place] [address] Dr. Chio Dave %NormalOhiohealth Southeastern Medical CenterComment on above:Performed By: #### RODOLFO #### [facility] [address] [place] [address] Dr. Chio AdameBCNormalThe [facility] CenterComcorewell health lud[facility] hospital on above:Performed By: #### RODOLFO #### [facility] [address] [place] [address] Dr. Chio BaldwniT142 103/ulCritically zmg837-675Ged [facility] CenterComcorewell health lud[facility] hospital on above:Performed By: #### RODOLFO #### [facility] [address] [place] [address] Dr. Chio RojasRBC5.41 106/ulNormal4.70-6.10The [facility] CenterComcorewell health ludington hospital on above:Performed By: #### RODOLFO #### [facility] [address] [place] [address] Dr. Chio GusmanW14.0 %Jnivin15.0-15.0The [facility] on above: Performed By: #### RODOLFO #### [facility] [address] [place] [address] Dr. Chio Santiago #4.67 103/ulNormal1.40-6.50The [facility] on above:Performed By: #### RODOLFO #### [facility] [address] [place] [address] Dr. Chio Santiago %55.0 %Zrvxqi50.0-75.0The [facility] CenterComcorewell health ludington hospital on above: Performed By: #### RODOLFO #### [facility] [address] [place] [address] Dr. Chio HendricksBC8.5 103/ulNormal4.0-11.0The [facility] on above: Performed By: #### RODOLFO #### [facility] [address] [place] [address] Dr. Chio Brennan CHEST WO W CONon 11-96-7384FFU CHEST WO W CONEXAMINATION: CTA CHEST WO W CON HISTORY: SHORTNESS [...] Electronically authenticated by: NICK MADRID Date: 2021-05-27 12:48NormOhio State East HospitalCovid-19 PCR (CVDTBH)on 13-89-6655VBXB-CoV-2 (COVID-19) RNA CHAYO+probe Ql (Unsp spec)Not detectedNormalNOT DETECTEDThe [facility] Comment on above:Result Comment: When diagnostic testing is negative, the possibility of a false negative should be considered in the context of a patient's recent exposures and the presence of clinical signs and symptoms consistent with SARS-CoV-2. This test is not yet approved or cleared by the [place] Food and Drug Administration (FDA). This test was developed by [employer], [place], [place]. The performance characteristics of this test were validated by The [facility]. The results are not intended to be used as the sole means for clinical diagnosis or patient management decisions. The [facility] is authorized under Clinical Laboratory Improvement Amendments [...] for this test is supported by the [employer] of Health and Human Service's declaration that circumstances exist to justify the emergency use of in vitro diagnostics for the detection and/or diagnosis of the virus that causes COVID-19. This EUA will remain in effect for the duration of the COVID-19 declaration justifying emergency of IVDs, unless it is terminated or revoked by the FDA (after which the test may no longer be used).Performed By: #### CVDTBH #### [facility] [address] [place] [address] Dr. Chio Zepeda-DIMERon 57-56-3801A-DIMER0.65 mg/L FEUCritically high0.19-0.50 The [facility] Hospitalment on above:Performed By: #### PTT, PT, DDIM #### [facility] [address] [place] [address] Dr. Chio Zepeda-DIMER COMMENTSSEE BELOWNoGrand Lake Joint Township District Memorial HospitalComment on above:Result Comment: Increases in D-Dimer concentration observed with thromboembolic events [...] and generalized hospitalization. critical value repeated and verifiedPerformed By: #### PTT, PT, DDIM #### [facility] [address] [place] [address] Dr. Chio RojasPROF 14(COMP METB)on 54-05-8208Jxiupes [Mass/Vol]3.8 g/dLNormal 3.5-5.0The [facility] Hospitalment on above:Performed By: #### CMP, HSTROPN, BNP #### [facility] [address] [place] [address] Dr. Chio RojasAlbumin/Globulin [Mass ratio]1.0 {ratio}NormalThe [facility] CenterComment on above:Performed By: #### CMP, HSTROPN, BNP #### [facility] [address] [place] [address] Dr. Chio Choi [Catalytic activity/Vol]87 U/WJuwuhf41-051Liq [facility] CenterComment on above:Performed By: #### CMP, HSTROPN, BNP #### [facility] [address] [place] [address] Dr. Chio Santana [Catalytic activity/Vol]74 U/LCritically ixfk30-51Svz [facility] CenterComment on above:Performed By: #### CMP, HSTROPN, BNP #### [facility] [address] [place] [address] Dr. Chio Phillips gap [Moles/Vol]27.1 mmol/LNormalOhiohealth Southeastern Medical Center Comment on above:Performed By: #### CMP, HSTROPN, BNP #### [facility] [address] [place] [address] Dr. Chio Infante [Catalytic activity/Vol]41 U/QJntbai80-85Mlg [facility] CenterComment on above:Performed By: #### CMP, HSTROPN, BNP #### [facility] [address] [place] [address] Dr. Chio RojasBilirubin [Mass/Vol]1.3 mg/dLNormal0.2-1.3TSumma Health [facility] Campus Comment on above:Performed By: #### CMP, HSTROPN, BNP #### [facility] [address] [place] [address] Dr. Chio RojasCalcium [Mass/Vol]9.2 mg/dLNormal8.4-10.2[facility] Comment on above:Performed By: #### CMP, HSTROPN, BNP #### [facility] [address] [place] [address] Dr. Chio RojasChloride [Moles/Vol]102 mmol/USjhzcn43-804IthOhiohealth Southeastern Medical Center Comment on above:Performed By: #### CMP, HSTROPN, BNP #### [facility] [address] [place] [address] Dr. Chio RojasCO2 [Moles/Vol]25.5 mmol/YJfulhy92.0-30.0The [facility] Comment on above:Performed By: #### CMP, HSTROPN, BNP #### [facility] [address] [address] [address] Chio RojasCreatinine [Mass/Vol]1.24 mg/dLNormal0.66-1.25The [facility] CenterComment on above:Performed By: #### CMP, HSTROPN, BNP #### [facility] [address] [address] [address] Barroso ChangEGFR-AF MOLDOVAN>60Normal>=60The [facility] CenterComment on above:Performed By: #### CMP, HSTROPN, BNP #### [facility] [address] [place] [address] Dr. Chio RodriguezGFR-NON AF OWZOYNFJ54 mL/min/1.16b1Gfrogplerc low>=60The [facility] CenterComment on above:Performed By: #### CMP, HSTROPN, BNP #### [facility] [address] [address] [address] Chio RojasGlobulin (S) [Mass/Vol]3.8 g/dLNormalThe [facility] CenterComment on above:Performed By: #### CMP, HSTROPN, BNP #### [facility] [address] [address] [address] Chio RojasGlucose [Mass/Vol]105 mg/lOKungky60-939Lkv [facility] Comment on above:Performed By: #### CMP, HSTROPN, BNP #### [facility] [address] [address] [address] Chio RojasPotassium [Moles/Vol]4.2 mmol/LNormal3.4-5.0The [facility] Comment on above:Performed By: #### CMP, HSTROPN, BNP #### [facility] [address] [address] [address] Chio RojasProtein [Mass/Vol]7.6 g/dLNormal6.1-8.2The [facility] Comment on above:Performed By: #### CMP, HSTROPN, BNP #### [facility] [address] [place] [address] Dr. Chio Partidaum [Moles/Vol]141 mmol/CCnbbbd338-120Shc [facility] Comment on above:Performed By: #### CMP, HSTROPN, BNP #### [facility] [address] [place] [address] Dr. Chio Delaney nitrogen [Mass/Vol]29.0 mg/dLCritically high9.0-20.0The [facility] CenterComment on above:Performed By: #### CMP, HSTROPN, BNP #### [facility] [address] [place] [address] Dr. hCio Delaney nitrogen/Creatinine [Mass ratio]23.4 mg/mgNoGrand Lake Joint Township District Memorial HospitalComment on above:Performed By: #### CMP, HSTROPN, BNP #### [facility] [address] [place] [address] Dr. Chio Cowan 40-46-2169HFY Coag (PPP) [Relative time]1.01 {INR} NormalOhiohealth Southeastern Medical CenterComment on above:Performed By: #### PTT, PT, DDIM #### [facility] [address] [place] [address] Dr. Chio Bradley GUIDELINESSEE BELOWSelect Medical Specialty Hospital - TrumbullComment on above:Result Comment: DESIRED INR: 2.0 - 3.0 CONDITIONS NOT LISTED BELOW 2.5 - 3.5 FOR PROSTHETIC HEART VALVE REPLACEMENT 2.5 - 3.5 RECURRENT THROMBOSIS Performed By: #### PTT, PT, DDIM #### [facility] [address] [place] [address] Dr. Chio RojasPT Coag (PPP) [Time]10.9 sNormal9.0-11.6The [facility] Comment on above:Performed By: #### PTT, PT, DDIM #### [facility] [address] [place] [address] Dr. Chio Dowd 46-47-8646gEOB Coag (Bld) [Time]28.2 uBuhinx65.3-36.2The [facility] CenterComment on above:Performed By: #### PTT, PT, DDIM #### [facility] [address] [address] [address] Chio RojasTROPONIN, HIGH SENSITIVITYon 66-80-1780NGYSSA13.9 pg/mLNormal 4.0-42.2The [facility] CenterComment on above:Result Comment: CUT-OFF POINTS HAVE BEEN ESTABLISHED BASED ON THE FOURTH UNIVERSAL DEFINITIONS OF MYOCARDIAL INFARCTION. THE UPPER REFERENCE LIMIT (URL) OF TROPONIN, DEFINED THE 99TH PERCENTILE OF cTnI DISTRIBUTION IN A REFERENCE POPULATION, HAS BEEN CONFIRMED THE DECISION THRESHOLD FOR [place] DIAGNOSIS.Performed By: #### CMP, HSTROPN, BNP #### [facility] [address] [address] [address] Chio Rojas Vital Signs Date TimeVital SignValuePerforming LuklbabvpZimqnwzt93-62-4566 11:070400Body .26 cmL[facility]2024 11:07-0400Body mass index (BMI) [Ratio]27.3 kg/n9YrmhiaddjLake County Memorial Hospital [facility]07-03-2024 11:07-0400Body cyanduojaub83.2 [degF][facility]07-03-2024 11:07-0400Body mxalbn82.08 kgLake County [facility]07-03-2024 11:07-0400Diastolic blood kaiezisf15 mm[Hg][facility] 12-16-2023 11:07-0400Heart rate82 /[facility] 12-16-2023 11:07-0400Respiratory rate18 /[facility] 12-16-2023 11:07-2592AqE3% (BldA) [Mass fraction]98 %[facility]07-03-2024 11:07-0400Systolic blood mm[Hg][facility] Encounters Encounter DateEncounter TypeCare ProviderFacilityStart: 12-16-2023 End: 21-58-4941edtiaynynkDlhmpjghzC[facility] Work Phone: Start: 12-16-2023 End: 84-46-1811Moikwgz encounter procedureCarepartners Rehabilitation [facility] Work Phone: Start: 05-27-2021 End: 08-38-6669gvywijpluvKB DOCTOR MISCFacility:H1 Payers DatePayer CategoryPayerPolicy [id number] Social History DateTypeDetailFacilityTobacco smoking status NHISUnknown if ever smokedMercy Health St[facility] Work Phone: Start: 14-30-7127[facility] Evaluation note Note Date & TypeNoteFacilityEvaluation noteNo assessment information available [facility] Work Phone: Summary Purpose Family History Relationship Condition Age at Onset Recorded Date/T barry father Unknown motherMalignant neoplasmUnknownDeceasedUnknown Advance Directives Advance Directive Response Recorded Date/ Time Advance Directives No December 15 10:55am Chief Complaint and Reason for Visit Chief Complaint Rash arms, face, wor sandrita in yard Additional Source Comments (unrecognized sect ion and content) No Status Records Found INFORMATION SOURCE (unrecogn ized section and content) DATE CREATED AUTHOR 05/29/2021 [facility] Care Teams (unrecognized sec tion and content) Team Status: Active Member Role Status Dates NON STAFF Primary Care Provider Active Team Status: Inactive Member Role Status Dates NON STAFF Primary Care Provider Active Start: December 16, 2023 End: December 15Sole Chua ProviderActiveStart: December 16, 2023 End: December 16, 2023 [...] BE BASED ON THE PRIMARY CLINICAL RECORDS. [facility]. provides no warranty or guarantee of the accuracy or completeness of information in this document.
--- OUTSIDE RECORDS SUMMARY | 2025-05-11 09:42 | XMS_ITS | Patient Health Record ---
Author Organization [facility] in [place] Address [address] [place] [address] Support Name Relationship Address Phone Jessi Cardenas Emergency Contact Unknown Unavailab le Brian Lowery Guarantor Unknown [phone] Reason For Referral No Information Plan Of Treatment No Information Insurance Providers Payer Name Payer Address Payer Phone Subscriber Number Group Number Insured Name Patient Relationship to Insured Coverage Start Date Coverage End Date SELF PAY ON PATIENT DEMOGRAPHICS Brian LowerySelf - patient is the [id number]
== END 2025-05-11 10:43 | disposition home or self-care (01) ==
PROVIDERS: Emergency Provider Emergency Medicine
DX: S93.402A Sprain of unspecified ligament of left ankle, initial encounter (principal); X50.1XXA Overexertion from prolonged static or awkward postures, initial encounter; S80.212A Abrasion, left knee, initial encounter; S50.311A Abrasion of right elbow, initial encounter; W18.39XA Other fall on same level, initial encounter
CPT/HCPCS: 73610; 73630; 99284